=== PATIENT | female | born 1950 | race Caucasian/White ===

== ENCOUNTER 2018-11-01 15:42 | Emergency (ER) | payer OTHER, MEDICARE ==
[2018-11-01] MEDS ORDERED: MORPHINE 4 MG/ML SYR ONE (16:16)
[2018-11-01] MEDS ORDERED: ONDANSETRON 4 MG/2 ML VIAL ONE (16:16)
--- NOTE | 2018-11-01 16:31 | RAD REPORT ---
EXAM DESCRIPTION: RAD - Knee Left 3 View - 11/01/2018 4:26 pm CLINICAL HISTORY: fall;Pain COMPARISON: No comparisons FINDINGS: Mildly comminuted acute fracture of the left patella is seen. A small suprapatellar lipohe marthrosis present. No dislocation evident.
[2018-11-01] MEDS ORDERED: HYDROCODONE/APAP 7.5/325 MG TAB ONE (17:21)
--- NOTE | 2018-11-01 17:42 | ER ---
Nurse's Notes [facility] Name: Gladys Lyon Age: 68 yrs Sex: Female : 1950 Arrival Date: 11/01/2018 Time: 15:48 Bed 30 Private MD: Diagnosis: Comminuted fracture of patella-Left;Other slipping, tripping and stumbling and falls Presentation: 11/01 15:48 Presenting complaint: Patient states: fell from standing. Pt states "for the last six aa5 months or so my left toes go numb every once in a while and that it's what happened today that made me lose my balance and I fell right onto my knee". Pt c/o left knee and left ankle pain. Pt denies LOC, denies head injury. Care prior to arrival: None. Mechanism of Injury: Fall from standing position. Trauma event details: Injury occurred in the [facility], Injury occurred: November 01, 2018. 15:48 Acuity: ASHLEY 4 aa5 15:48 Method Of Arrival: EMS: [facility] aa5 15:48 Transition of care: patient was not received from another setting of care. Onset of aa5 symptoms was November 01, 2018. 15:50 Risk Assessment: Do you want to hurt yourself or someone else? Patient reports no aa5 desire to harm self or others. Initial Sepsis Screen: Does the patient meet any 2 criteria? No. Patient's initial sepsis screen is negative. Does the patient have a suspected source of infection? No. Patient's initial sepsis screen is negative. Trauma Activation: Not Applicable Physician: ED Physician; Name: ; Notified At: ; Arrived At: Physician: General Surgeon; Name: ; Notified At: ; Arrived At: Physician: Radiology; Name: ; Notified At: ; Arrived At: Physician: Respiratory; Name: ; Notified At: ; Arrived At: Physician: Lab; Name: ; Notified At: ; Arrived At: Historical: - Allergies: 15:48 Sulfa (Sulfonamide Antibiotics); aa5 15:48 PENICILLINS; aa5 - PMHx: 15:48 Hypertension; Thyroid problem; Lupus; vertigo; aa5 - PSHx: 15:48 back sx; spleenectomy; Hysterectomy; right shoulder; aa5 - Immunization history:: Flu vaccine status is unknown. - Immunization history: Last tetanus immunization: unknown. - Ebola Screening: : No symptoms or risks identified at this time. - Social history:: Smoking status: unknown. Screenin:28 Abuse screen: Denies threats or abuse. Denies injuries from another. Nutritional mg2 screening: No deficits noted. Tuberculosis screening: No symptoms or risk factors identified. Fall Risk Fall in past 12 months (25 points). IV access (20 points). Primary Survey: 16:31 NO uncontrolled hemorrhage observed. Breathing/Chest: Respiratory pattern: regular, mg2 Respiratory effort: spontaneous, unlabored, Breath sounds: clear, bilaterally. in left posterior upper lobe and right posterior upper lobe Chest inspection:. Circulation: Pulses:. Disability Alert. Exposure/Environment: All clothing and personal items were removed. Forensic evidence collection is not deemed to be indicated at this time. Items placed in patient belonging bag. There is no evidence of uncontrolled external bleeding. Obvious injury(ies) are noted at this time: left knee bruising and swelling. 18:17 Reassessment Breathing/Chest Respiratory pattern Regular. mg2 Secondary Survey: 16:33 HEENT: No deficits noted. Gastrointestinal: No deficits noted. : No deficits noted. mg2 Musculoskeletal: Circulation, motion, and sensation intact. Capillary refill < 3 seconds, Swelling present in left knee. Injury Description: Bruise sustained to left knee is red, was sustained 1-2 hours ago. Assessment: 16:26 General: Appears in no apparent distress. comfortable, Behavior is calm, cooperative. mg2 Pain: Complains of pain in left knee Pain does not radiate. Pain currently is 7 out of 10 on a pain scale. Quality of pain is described as aching, Pain began gradually, 1 hour ago. Is intermittent, Alleviated by medications, rest, cold application, Aggravated by repositioning. Neuro: Level of Consciousness is awake, alert, obeys commands, Oriented to person, place, time, situation. Cardiovascular: Capillary refill < 3 seconds Patient's skin is warm and dry. Respiratory: Airway is patent Respiratory effort is even, unlabored, Respiratory pattern is regular, symmetrical. GI: No signs and/or symptoms were reported involving the gastrointestinal system. : No signs and/or symptoms were reported regarding the genitourinary system. EENT: No signs and/or symptoms were reported regarding the EENT system. Derm: Skin is intact, is healthy with good turgor, Bruising that is on left knee red. Musculoskeletal: Circulation, motion, and sensation intact. Capillary refill < 3 seconds, Range of motion: limited in left knee Swelling present in left knee. Injury Description: Bruise sustained to left knee is red, was sustained 1-2 hours ago. Vital Signs: 15:50 BP 186 / 83; Pulse 93; Resp 18 S; Temp 98.4(O); Pulse Ox 97% on R/A; Weight 50.8 kg aa5 (R); Height 5 ft. 1 in. (154.94 cm) (R); Pain 9/10; 17:18 BP 180 / 66; Pulse 90; Resp 18; Pulse Ox 100% on R/A; mg2 18:16 BP 165 / 60; Pulse 80; Resp 18; Pulse Ox 100% on R/A; Pain 2/10; mg2 15:50 Body Mass Index 21.16 (50.80 kg, 154.94 cm) aa5 [place] Coma Score: 16:35 Eye Response: spontaneous(4). Verbal Response: oriented(5). Motor Response: obeys mg2 commands(6). Total: 15. Trauma Score (Adult): 16:35 Eye Response: spontaneous(1); Verbal Response: oriented(1); Motor Response: obeys mg2 commands(2); Systolic BP: > 89 mm Hg(4); Respiratory Rate: 10 to 29 per min(4); Yousif Score: 15; Trauma Score: 12 18:16 Eye Response: spontaneous(1); Verbal Response: oriented(1); Motor Response: obeys mg2 commands(2); Systolic BP: > 89 mm Hg(4); Respiratory Rate: 10 to 29 per min(4); [place] Score: 15; Trauma Score: 12 ED Course: 15:48 Patient arrived in ED. aa5 15:48 Josiah Beckwith PA is PHCP. cp 15:48 Ching Barth MD is Attending Physician. cp 15:48 Arm band placed on. aa5 15:50 Triage completed. aa5 16:04 Faheem Mcginnis, KAREN is Primary Nurse. mg2 16:21 X-ray completed. Portable x-ray completed in exam room. Patient tolerated procedure ag1 poorly. 16:21 XRAY Knee LEFT 3 view In Process Unspecified. EDMS 16:30 No provider procedures requiring assistance completed. Inserted saline lock: 22 gauge mg2 in right forearm, using aseptic technique. 16:35 Patient has correct armband on for positive identification. Bed in low position. Side mg2 rails up X2. 16:36 Patient maintains SpO2 saturation greater than 95% on room air. mg2 17:40 Saul Bonilla MD is Referral Physician. cp 18:16 IV discontinued, intact, bleeding controlled, No redness/swelling at site. Pressure mg2 dressing applied. 18:16 Crutch training done. Knee immobilizer applied on left knee. mg2 18:19 Thermoregulation: warm blanket given to patient. mg2 Administered Medications: 16:25 Not Given (Physician Discretion): morphine 4 mg IM once mg2 16:25 Not Given (Physician Discretion): Zofran 4 mg IM once mg2 16:25 Drug: Zofran 4 mg Route: IVP; Site: right forearm; mg2 18:15 Follow up: Response: No adverse reaction; Marked relief of symptoms mg2 16:26 Drug: morphine 4 mg Route: IVP; Site: right forearm; mg2 18:16 Follow up: Response: No adverse reaction; Marked relief of symptoms mg2 17:15 Drug: Hydrocodone-Acetaminophen (7.5 mg-325 mg) 1 tabs Route: PO; mg2 18:15 Follow up: Response: No adverse reaction; Marked relief of symptoms mg2 Intake: 16:35 PO: 0ml; Total: 0ml. mg2 Outcome: 17:41 Discharge ordered by MD. cp 18:17 Discharged to home via wheelchair, with family. mg2 18:17 Condition: stable 18:17 Discharge instructions given to patient, family, Instructed on discharge instructions, follow up and referral plans. medication usage, crutch walking, Demonstrated understanding of instructions, follow-up care, crutch walking, Prescriptions given X 1. 18:18 Patient's length of stay in the Emergency Department was greater than 2 hours. awaiting mg2 for xray reportPatient's length of stay extended due to 18:19 Patient left the ED. mg2 Signatures: Dispatcher [employer] EDMS Eboni Stringer, RN RN aa5 Deena Prabhakar ag1 Josiah Beckwith PA PA cp Faheem Mcginnis RN RN mg2
--- NOTE | 2018-11-01 17:42 | EDPHYS ---
Physician Documentation [facility] Name: Gladys Lyon Age: 68 yrs Sex: Female : 1950 Arrival Date: 11/01/2018 Time: 15:48 Bed 30 Private MD: ED Physician Ching Barth HPI: 11/01 16:00 This 68 yrs old Female presents to ER via EMS with complaints of Fall Injury. cp 16:00 Details of fall: The patient fell from an upright position, while walking, and struck a cp concrete surface. 16:00 Onset: The symptoms/episode began/occurred just prior to arrival. Associated injuries: cp The patient sustained anterior aspect left knee, decreased range of motion, painful injury. Historical: - Allergies: 15:48 Sulfa (Sulfonamide Antibiotics); aa5 15:48 PENICILLINS; aa5 - PMHx: 15:48 Hypertension; Thyroid problem; Lupus; vertigo; aa5 - PSHx: 15:48 back sx; spleenectomy; Hysterectomy; right shoulder; aa5 - Immunization history:: Flu vaccine status is unknown. - Immunization history: Last tetanus immunization: unknown. - Ebola Screening: : No symptoms or risks identified at this time. - Social history:: Smoking status: unknown. ROS: 16:05 Constitutional: Negative for body aches, chills, fever, poor PO intake. cp 16:05 Eyes: Negative for injury, pain, redness, and discharge. cp 16:05 MS/extremity: Positive for decreased range of motion, pain, swelling, tenderness, of cp the anterior aspect left knee. 16:05 Cardiovascular: Negative for chest pain. cp 16:05 Respiratory: Negative for cough, shortness of breath, wheezing. 16:05 Abdomen/GI: Negative for abdominal pain, nausea, vomiting, and diarrhea. 16:05 Neuro: Negative for dizziness, headache, loss of consciousness, syncope, weakness. 16:05 All other systems are negative. Exam: 16:12 Constitutional: The patient appears in no acute distress, alert, awake, cp non-diaphoretic, non-toxic, well developed, well nourished, uncomfortable. 16:12 Head/Face: Normocephalic, atraumatic. cp 16:12 Eyes: Periorbital structures: appear normal. 16:12 ENT: External ear(s): are unremarkable, Nose: is normal, Mouth: Lips: moist, Posterior pharynx: Airway: no evidence of obstruction, patent. 16:12 Neck: ROM/movement: is normal, is supple, no range of motions limitations, no nuchal rigidity. 16:12 Chest/axilla: Inspection: normal. 16:12 Cardiovascular: Rate: normal. 16:12 Respiratory: the patient does not display signs of respiratory distress, Respirations: normal, no use of accessory muscles, no retractions, no splinting, no tachypnea. 16:12 Abdomen/GI: Exam negative for discomfort, distension, guarding, Inspection: abdomen appears normal. 16:12 Musculoskeletal/extremity: Extremities: grossly normal except: noted in the anterior aspect left knee: decreased ROM, pain, swelling, tenderness, ROM: limited active range of motion, in the left knee, Perfusion: the extremity is normally perfused throughout, Sensation intact. 16:12 Neuro: Orientation: to person, place \T\ time. Mentation: is normal. Vital Signs: 15:50 BP 186 / 83; Pulse 93; Resp 18 S; Temp 98.4(O); Pulse Ox 97% on R/A; Weight 50.8 kg aa5 (R); Height 5 ft. 1 in. (154.94 cm) (R); Pain 9/10; 17:18 BP 180 / 66; Pulse 90; Resp 18; Pulse Ox 100% on R/A; mg2 18:16 BP 165 / 60; Pulse 80; Resp 18; Pulse Ox 100% on R/A; Pain 2/10; mg2 15:50 Body Mass Index 21.16 (50.80 kg, 154.94 cm) aa5 Yousif Coma Score: 16:35 Eye Response: spontaneous(4). Verbal Response: oriented(5). Motor Response: obeys mg2 commands(6). Total: 15. Trauma Score (Adult): 16:35 Eye Response: spontaneous(1); Verbal Response: oriented(1); Motor Response: obeys mg2 commands(2); Systolic BP: > 89 mm Hg(4); Respiratory Rate: 10 to 29 per min(4); Yousif Score: 15; Trauma Score: 12 18:16 Eye Response: spontaneous(1); Verbal Response: oriented(1); Motor Response: obeys mg2 commands(2); Systolic BP: > 89 mm Hg(4); Respiratory Rate: 10 to 29 per min(4); Siren Score: 15; Trauma Score: 12 MDM: 15:48 Patient medically screened. cp 16:00 Differential diagnosis: contusion, fracture, dislocation. cp 17:40 Data reviewed: vital signs, nurses notes, radiologic studies, plain films. cp 17:40 Test interpretation: by ED physician or midlevel provider: plain radiologic studies. cp Counseling: I had a detailed discussion with the patient and/or guardian regarding: the historical points, exam findings, and any diagnostic results supporting the discharge/admit diagnosis, radiology results, the need for outpatient follow up, for definitive care, a orthopedic surgeon, to return to the emergency department if symptoms worsen or persist or if there are any questions or concerns that arise at home. Response to treatment: the patient's symptoms have markedly improved after treatment, and as a result, I will discharge patient. 11/01 15:56 Order name: XRAY Knee LEFT 3 view; Complete Time: 16:52 cp 11/01 16:52 Interpretation: Report reviewed. 11/01 16:53 Order name: Crutches; Complete Time: 18:15 cp 11/01 16:53 Order name: Knee Immobilizer; Complete Time: 18:15 cp Administered Medications: 16:25 Not Given (Physician Discretion): morphine 4 mg IM once mg2 16:25 Not Given (Physician Discretion): Zofran 4 mg IM once mg2 16:25 Drug: Zofran 4 mg Route: IVP; Site: right forearm; mg2 18:15 Follow up: Response: No adverse reaction; Marked relief of symptoms mg2 16:26 Drug: morphine 4 mg Route: IVP; Site: right forearm; mg2 18:16 Follow up: Response: No adverse reaction; Marked relief of symptoms mg2 17:15 Drug: Hydrocodone-Acetaminophen (7.5 mg-325 mg) 1 tabs Route: PO; mg2 18:15 Follow up: Response: No adverse reaction; Marked relief of symptoms mg2 Disposition: 18:23 Co-signature as Attending Physician, Ching Barth MD. ma2 Disposition: 11/01/18 17:41 Discharged to Home. Impression: Comminuted fracture of patella - Left, Other slipping, tripping and stumbling and falls. - Condition is Stable. - Discharge Instructions: Knee Immobilizer, Patellar Fracture, Adult. - Prescriptions for Tylenol- Codeine #3 300-30 mg Oral Tablet - take 2 tablets by ORAL route every 6 hours As needed; 20 tablet. - Medication Reconciliation Form, Thank You Letter, Antibiotic Education, Prescription Opioid Use form. - Follow up: Saul Bonilla MD; When: 1 - 2 days; Reason: left patella fracture. - Problem is new. - Symptoms have improved. Signatures: Dispatcher [employer] EDMS Eboni Stringer, RN RN aa5 Josiah Beckwith PA PA cp Ching Barth MD MD ma2 Faheem Mcginnis RN RN mg2 Corrections: (The following items were deleted from the chart) 17:43 17:41 11/01/2018 17:41 Discharged to Home. Impression: Comminuted fracture of patella - cp Left. Condition is Stable. Discharge Instructions: Knee Immobilizer. Prescriptions for Tylenol-Codeine #3 300-30 mg Oral Tablet - take 2 tablets by ORAL route every 6 hours As needed; 20 tablet. and Forms are Medication Reconciliation Form, Thank You Letter, Antibiotic Education, Prescription Opioid Use. Follow up: Saul Bonilla; When: 1 - 2 days; Reason: left patella fracture. Problem is new. Symptoms have improved. cp 18:19 17:43 11/01/2018 17:41 Discharged to Home. Impression: Comminuted fracture of patella - mg2 Left; Other slipping, tripping and stumbling and falls. Condition is Stable. Discharge Instructions: Knee Immobilizer. Prescriptions for Tylenol-Codeine #3 300-30 mg Oral Tablet - take 2 tablets by ORAL route every 6 hours As needed; 20 tablet. and Forms are Medication Reconciliation Form, Thank You Letter, Antibiotic Education, Prescription Opioid Use. Follow up: Saul Bonilla; When: 1 - 2 days; Reason: left patella fracture. Problem is new. Symptoms have improved. cp
== END 2018-11-01 18:19 | disposition home or self-care (01) ==
LOC: ER 15:42
DX: S82.042A Displaced comminuted fracture of left patella, initial encounter for closed fracture (principal); W19.XXXA Unspecified fall, initial encounter; Y93.01 Activity, walking, marching and hiking; Y92.9 Unspecified place or not applicable; Z88.0 Allergy status to penicillin; Z88.2 Allergy status to sulfonamides; I10 Essential (primary) hypertension
CPT/HCPCS: 73562; 96374; 96375; 99284; J2405

== ENCOUNTER 2018-11-20 12:31 | Emergency (ER) | payer OTHER, MEDICARE ==
[2018-11-20] MEDS ORDERED: HYDROCODONE/APAP 10/325 TAB ONE (13:39)
--- NOTE | 2018-11-20 15:44 | RAD REPORT ---
EXAM DESCRIPTION: RAD - Ankle Left 3 View -11/20/2018 2:45 pm CLINICAL HISTORY: Left ankle pain status post injury FINDINGS: No fracture or dislocation is seen. The bones are osteoporotic
--- NOTE | 2018-11-20 15:46 | RAD REPORT ---
EXAM DESCRIPTION: RAD - Foot Left 3 View - 11/20/2018 2:45 pm CLINICAL HISTORY: Left Foot pain FINDINGS: No fracture or dislocation is seen. The bones are osteoporotic
[2018-11-20] MEDS ORDERED: HYDROMORPHONE HCL 0.5 MG/0.5 ML INJ ONE (16:29)
--- NOTE | 2018-11-20 17:51 | RAD REPORT ---
EXAM DESCRIPTION: USExtremity Venous Uni Ltd11/20/2018 5:45 pm CLINICAL HISTORY: left leg pain and swelling. COMPARISON: None. FINDINGS: Left common femoral, superficial femoral, popliteal and posterior tibial veins are compre ssible and demonstrate augmentation. Doppler demonstrates good flow. IMPRESSION: No evidence of deep venous thrombosis involving the left lower extremity.
--- NOTE | 2018-11-20 18:01 | RAD REPORT ---
EXAM DESCRIPTION: US - Lower Extremity Artery Uni Ltd - 11/20/2018 5:49 pm CLINICAL HISTORY: Left lower extremity pain COMPARISON: None FINDINGS: The waveforms of the left common femoral, left superficial femoral, left popliteal, left p osterior tibial, and left dorsalis pedis arteries are monophasic. An occlusion is not seen. A high-grade stenosis is not visualized. IMPRESSION: Moderate diffuse arterial disease without visualization of a high-grade stenosis/ occlus ion
--- NOTE | 2018-11-20 18:15 | ER ---
Nurse's Notes [facility] Name: Gladys Lyon Age: 68 yrs Sex: Female : 1950 Arrival Date: 11/20/2018 Time: 12:33 Bed 20 Private MD: Mega Wilson E Diagnosis: Pain in left leg;Pain in left foot Presentation: 11/20 12:37 Presenting complaint: Patient states: 3 weeks ago I broke my left knee but I never my la1 left ankle looked at and I am afraid it may be broken. Transition of care: patient was not received from another setting of care. Onset of symptoms was November 20, 2018. Risk Assessment: Do you want to hurt yourself or someone else? Patient reports no desire to harm self or others. Initial Sepsis Screen: Does the patient meet any 2 criteria? No. Patient's initial sepsis screen is negative. Does the patient have a suspected source of infection? No. Patient's initial sepsis screen is negative. Care prior to arrival: None. 12:37 Method Of Arrival: Wheelchair la1 12:37 Acuity: ASHLEY 4 la1 Triage Assessment: 13:11 General: Appears in no apparent distress. Injury Description: from fall. tw2 Historical: - Allergies: 12:36 PENICILLINS; la1 12:36 Sulfa (Sulfonamide Antibiotics); la1 12:36 Keflex; la1 - PMHx: 12:36 Hypertension; Lupus; Thyroid problem; Vertigo; la1 - PSHx: 13:01 spleenectomy; Hysterectomy; right shoulder; back sx; tw2 - Immunization history:: Adult Immunizations up to date. - Social history:: Smoking status: unknown. - Ebola Screening: : No symptoms or risks identified at this time. Screenin:59 Abuse screen: Denies threats or abuse. Nutritional screening: No deficits noted. tw2 Tuberculosis screening: No symptoms or risk factors identified. Fall Risk Secondary diagnosis (15 points) impaired mobility. Assessment: 13:09 General: Appears in no apparent distress. Behavior is calm, cooperative, appropriate tw2 for age. Pain: Complains of pain in right leg. Neuro: Level of Consciousness is awake, alert, obeys commands, Oriented to person, place, time, situation. Cardiovascular: Capillary refill < 3 seconds Patient's skin is warm and dry. Respiratory: Airway is patent Respiratory effort is even, unlabored, Respiratory pattern is regular, symmetrical. GI: No signs and/or symptoms were reported involving the gastrointestinal system. : No signs and/or symptoms were reported regarding the genitourinary system. EENT: No signs and/or symptoms were reported regarding the EENT system. Derm: No signs and/or symptoms reported regarding the dermatologic system. Musculoskeletal: Range of motion: limited in left knee Reports "i broke my knee 3 weeks ago but it was my whole left leg and foot and they never looked at my foot". 14:23 Reassessment: Patient appears in no apparent distress at this time. No changes from tw2 previously documented assessment. Patient and/or family updated on plan of care and expected duration. Pain level reassessed. Patient is alert, oriented x 3, equal unlabored respirations, skin warm/dry/pink. 15:15 Reassessment: Patient appears in no apparent distress at this time. No changes from tw2 previously documented assessment. Patient and/or family updated on plan of care and expected duration. Pain level reassessed. Patient is alert, oriented x 3, equal unlabored respirations, skin warm/dry/pink. 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 15:47 Reassessment: provider at bedside with handheld doppler at this time. tw2 16:15 Reassessment: pt c/o pain, pts friend at bedside states "her foot is hurting her, she tw2 didn't need something at home, she needs something now", provider notified. 16:31 Reassessment: Patient appears in no apparent distress at this time. Patient and/or tw2 family updated on plan of care and expected duration. Pain level reassessed. Patient is alert, oriented x 3, equal unlabored respirations, skin warm/dry/pink. Patient states symptoms have not improved. 17:25 Reassessment: Patient appears in no apparent distress at this time. No changes from tw2 previously documented assessment. Patient and/or family updated on plan of care and expected duration. Pain level reassessed. Patient is alert, oriented x 3, equal unlabored respirations, skin warm/dry/pink. 18:20 Reassessment: Patient appears in no apparent distress at this time. No changes from tw2 previously documented assessment. Patient and/or family updated on plan of care and expected duration. Pain level reassessed. Patient is alert, oriented x 3, equal unlabored respirations, skin warm/dry/pink. Vital Signs: 12:39 Pulse 85; Resp 16; Temp 97.7; Pulse Ox 98% on R/A; Weight 47.17 kg; Height 5 ft. 1 in. la1 (154.94 cm); 12:40 BP 160 / 69; la1 14:23 BP 136 / 51; Pulse 72; Resp 17; Pulse Ox 95% on R/A; tw2 15:14 BP 131 / 52; Pulse 69; Resp 17; Pulse Ox 96% on R/A; tw2 16:31 BP 113 / 83; Pulse 77; Resp 17; Pulse Ox 99% on R/A; tw2 17:24 BP 116 / 45; Pulse 68; Resp 17; Pulse Ox 97% on R/A; tw2 12:39 Body Mass Index 19.65 (47.17 kg, 154.94 cm) la1 ED Course: 12:33 Patient arrived in ED. mr 12:34 Mega Wilson MD is Private Physician. mr 12:36 Arm band placed on left wrist. la1 12:38 Triage completed. la1 12:57 [facility]. cp 12:57 Haroldo Bernal MD is Attending Physician. cp 12:59 Lucinda Magnaa, KAREN is Primary Nurse. tw2 12:59 Bed in low position. Call light in reach. Pulse ox on. NIBP on. tw2 14:45 XRAY Ankle LEFT 3 view In Process Unspecified. EDMS 14:45 XRAY Foot LEFT 3 View In Process Unspecified. EDMS 17:05 X-ray completed. Patient tolerated procedure well. Notified BINDER CASER/PA page. sg3 17:45 US Extremity Venous Unilateral Ltd In Process Unspecified. EDMS 17:51 US Lower Extremity Artery Uni Ltd In Process Unspecified. EDMS 18:20 No provider procedures requiring assistance completed. Patient did not have IV access tw2 during this emergency room visit. Administered Medications: 13:30 Drug: HYDROcodone-acetaminophen 10 mg-325 mg 1 tabs Route: PO; tw2 15:14 Follow up: Response: No adverse reaction; Pain is decreased tw2 16:22 Drug: Dilaudid 0.5 mg Route: IM; Site: left deltoid; tw2 17:43 Follow up: Response: No adverse reaction; Pain is decreased tw2 Outcome: 18:14 Discharge ordered by . cp 18:20 Discharged to home via wheelchair, with family. tw2 18:20 Condition: stable 18:20 Discharge instructions given to patient, family, Instructed on discharge instructions, follow up and referral plans. medication usage, Demonstrated understanding of instructions, follow-up care, medications, Prescriptions given X 1. 18:21 Patient left the ED. tw2 Signatures: Dispatcher [employer] EDSD MarlonRoz HernanCb swan RN RN la1 Josiah Beckwith PA PA cp Wise, Tara, RN RN tw2 Lashell Coleman3
--- NOTE | 2018-11-20 18:15 | EDPHYS ---
Physician Documentation [facility] Name: Gladys Lyon Age: 68 yrs Sex: Female : 1950 Arrival Date: 11/20/2018 Time: 12:33 Bed 20 Private MD: Mega Wilson E ED Physician Haroldo Bernal HPI: 11/20 13:25 This 68 yrs old Female presents to ER via Wheelchair with complaints of Foot cp Injury. 13:25 The patient presents with pain, swelling, tenderness. The complaints affect the left cp ankle and left foot. Associated signs and symptoms: Pertinent negatives fever, numbness, tingling, warmth. 13:25 Patient was seen in [facility] ED 11-01-2018 after trip and fall causing comminuted cp fracture of left patella. Patient reports she has seen and evaluated by DR Cali who is treating fracture with immobilization of left knee. Patient reports increasing swelling and pain to left ankle and left foot and is concerned about possible fracture of feet sustained from fall on 11-01-2018. Historical: - Allergies: 12:36 PENICILLINS; la1 12:36 Sulfa (Sulfonamide Antibiotics); la1 12:36 Keflex; la1 - PMHx: 12:36 Hypertension; Lupus; Thyroid problem; Vertigo; la1 - PSHx: 13:01 spleenectomy; Hysterectomy; right shoulder; back sx; tw2 - Immunization history:: Adult Immunizations up to date. - Social history:: Smoking status: unknown. - Ebola Screening: : No symptoms or risks identified at this time. ROS: 13:30 Constitutional: Negative for body aches, chills, fever. cp 13:30 Eyes: Negative for injury, pain, redness, and discharge. cp 13:30 Cardiovascular: Negative for chest pain, edema, palpitations. 13:30 Respiratory: Negative for cough, shortness of breath, wheezing. 13:30 MS/extremity: Positive for ecchymosis, pain, swelling, tenderness, of the left ankle and left foot, Negative for decreased range of motion, deformity. 13:30 Neuro: Negative for numbness, tingling. 13:30 All other systems are negative. Exam: 13:38 Constitutional: The patient appears in no acute distress, alert, awake, cp non-diaphoretic, non-toxic, well developed, well nourished, uncomfortable. 13:38 Head/Face: Normocephalic, atraumatic. cp 13:38 Eyes: Periorbital structures: appear normal, Conjunctiva: normal, no exudate, no injection, Sclera: no appreciated abnormality, Lids and lashes: appear normal, bilaterally. 13:38 ENT: External ear(s): are unremarkable, Nose: is normal, Mouth: Lips: moist, Oral mucosa: moist, Posterior pharynx: Airway: no evidence of obstruction, patent. 13:38 Neck: ROM/movement: is normal, is supple, without pain, no range of motions limitations, no nuchal rigidity. 13:38 Chest/axilla: Inspection: normal, Palpation: is normal, no crepitus, no tenderness. 13:38 Cardiovascular: Rate: normal, Rhythm: regular, Edema: is not appreciated, JVD: is not appreciated. 13:38 Respiratory: the patient does not display signs of respiratory distress, Respirations: normal, no use of accessory muscles, no retractions, no splinting, no tachypnea, labored breathing, is not present, Breath sounds: are clear throughout, no decreased breath sounds, no stridor, no wheezing. 13:38 Abdomen/GI: Exam negative for discomfort, distension, guarding, Inspection: abdomen appears normal. 13:38 Back: pain, is absent, ROM is normal. 13:38 Musculoskeletal/extremity: Extremities: grossly normal except: noted in the left ankle: ecchymosis, swelling, tenderness, ROM: limited passive range of motion due to pain, in the left ankle, Pulses: weak dorsalis pedis pulse left foot, Perfusion: the extremity is pink, with brisk capillary refill, cool, Calf tenderness, that is mild, of the left lower extremeity, Edema, is not appreciated, Sensation intact. 13:38 Skin: cellulitis, is not appreciated, no rash present. 13:38 Neuro: Orientation: is normal, Mentation: is normal, Motor: moves all fours, strength is normal. Vital Signs: 12:39 Pulse 85; Resp 16; Temp 97.7; Pulse Ox 98% on R/A; Weight 47.17 kg; Height 5 ft. 1 in. la1 (154.94 cm); 12:40 BP 160 / 69; la1 14:23 BP 136 / 51; Pulse 72; Resp 17; Pulse Ox 95% on R/A; tw2 15:14 BP 131 / 52; Pulse 69; Resp 17; Pulse Ox 96% on R/A; tw2 16:31 BP 113 / 83; Pulse 77; Resp 17; Pulse Ox 99% on R/A; tw2 17:24 BP 116 / 45; Pulse 68; Resp 17; Pulse Ox 97% on R/A; tw2 12:39 Body Mass Index 19.65 (47.17 kg, 154.94 cm) la1 MDM: 12:57 Patient medically screened. cp 14:00 Differential diagnosis: dislocation, closed fracture, tendonitis, DVT, arterial cp occlusion. 18:10 Data reviewed: vital signs, nurses notes, radiologic studies, plain films, ultrasound, cp and as a result, I will discharge patient. 18:10 Counseling: I had a detailed discussion with the patient and/or guardian regarding: the cp historical points, exam findings, and any diagnostic results supporting the discharge/admit diagnosis, radiology results, the need for outpatient follow up, with PCP concerning vascular disease and DR Cali, orthopedist, for reevaluation of patella fracture. Response to treatment: the patient's symptoms have markedly improved after treatment. 11/20 13:19 Order name: XRAY Ankle LEFT 3 view; Complete Time: 15:51 cp 11/20 13:19 Order name: XRAY Foot LEFT 3 View; Complete Time: 15:51 cp 11/20 15:53 Order name: US Extremity Venous Unilateral Ltd; Complete Time: 18:05 cp 11/20 15:53 Order name: Lower Extremity Artery Uni Ltd; Complete Time: 18:05 cp Administered Medications: 13:30 Drug: HYDROcodone-acetaminophen 10 mg-325 mg 1 tabs Route: PO; tw2 15:14 Follow up: Response: No adverse reaction; Pain is decreased tw2 16:22 Drug: Dilaudid 0.5 mg Route: IM; Site: left deltoid; tw2 17:43 Follow up: Response: No adverse reaction; Pain is decreased tw2 Disposition: 18:56 Co-signature as Attending Physician, Haroldo Bernal MD. Disposition: 11/20/18 18:14 Discharged to Home. Impression: Pain in left leg, Pain in left foot. - Condition is Stable. - Discharge Instructions: Musculoskeletal Pain. - Prescriptions for Diclofenac Sodium 75 mg Oral Tablet, Delayed Release (E.C.) - take 1 tablet by ORAL route 2 times per day; 20 tablet. - Medication Reconciliation Form, Thank You Letter, Antibiotic Education, Prescription Opioid Use form. - Follow up: Private Physician; When: 2 - 3 days; Reason: Recheck today's complaints. - Problem is an ongoing problem. - Symptoms have improved. Signatures: Dispatcher [employer] EDMS Cb Sierra RN RN la1 Josiah Beckwith PA PA cp Lucinda Magana RN RN tw2 Haroldo Bernal MD MD gs Corrections: (The following items were deleted from the chart) 18:21 18:14 11/20/2018 18:14 Discharged to Home. Impression: Pain in left leg; Pain in left tw2 foot. Condition is Stable. Forms are Medication Reconciliation Form, Thank You Letter, Antibiotic Education, Prescription Opioid Use. Follow up: Private Physician; When: 2 - 3 days; Reason: Recheck today's complaints. Problem is an ongoing problem. Symptoms have improved. cp
== END 2018-11-20 18:21 | disposition home or self-care (01) ==
LOC: ER 12:31
DX: M79.672 Pain in left foot (principal); M79.605 Pain in left leg; I10 Essential (primary) hypertension; Z88.0 Allergy status to penicillin; Z88.2 Allergy status to sulfonamides; Z88.8 Allergy status to other drugs, medicaments and biological substances
CPT/HCPCS: 73610; 73630; 93926; 93971; J1170; 96372; 99284

== ENCOUNTER 2018-12-30 11:59 | Emergency (ER) | payer OTHER, MEDICARE ==
[2018-12-30] MEDS ORDERED: MORPHINE 4 MG/ML SYR ONE (12:30)
[2018-12-30] MEDS ORDERED: ONDANSETRON 4 MG/2 ML VIAL ONE (12:30)
[2018-12-30 12:34] LABS: Absolute Lymphocytes (CBC) 2.4 K/uL (0.7-4.9); Absolute Monocytes 0.9 K/uL (0.1-1.3); Absolute Neutrophil 7.7 K/uL (1.8-8.0); Basophils % 1.1 % (0-1.3); Eosinophils % 2.6 % (0-4.4); Hematocrit 41.4 % (36.0-45.0); Lymphocytes % 20.9 % (15.3-44.8); MPV 8.7 fL (7.6-11.3); Monocytes % 7.9 % (3.3-12.3)
[2018-12-30 12:57] LABS: Potassium 3.7 mmol/L (3.5-5.1)
--- NOTE | 2018-12-30 13:01 | RAD REPORT ---
EXAM DESCRIPTION: RAD - Foot Left 3 View - 12/30/2018 12:54 pm CLINICAL HISTORY: Right first toe pain, soft tissue swelling, possible osteomyelitis COMPARISON: November 2018 FINDINGS: No fracture, dislocation or periosteal reaction. No bone destructive process in the first toe nor elsewhere the left foot. No radiographic evidence for osteomyelitis. Osteomyelitis can exist prior to radiographic bone destruction. Soft tissue swelling evident at the first toe. No air or foreign body. IMPRESSION: No fracture. No radiographic evidence for osteomyelitis.
[2018-12-30] MEDS ORDERED: FENTANYL CITR 100 MCG/2 ML ONE (14:07)
[2018-12-30] MEDS ORDERED: CLINDAMYCIN 600MG/D5W 600 MG/50 ML BAG IV ONE (14:07)
--- NOTE | 2018-12-30 14:09 | EDPHYS ---
Physician Documentation [facility] Name: Gladys Lyon Age: 68 yrs Sex: Female : 1950 Arrival Date: 12/30/2018 Time: 12:07 Bed 20 Private MD: ED Physician Mendoza Joe HPI: 12/30 13:03 This 68 yrs old Female presents to ER via EMS with complaints of great toe kb pain, wound. 13:03 The patient presents with pain, that is acute, tenderness. The complaints affect the kb left first toe. Context: The problem was sustained at home, resulted from wound noted to left great toe, the patient can fully bear weight, the patient is able to ambulate. Onset: The symptoms/episode began/occurred 1.5 month(s) ago. Modifying factors: The symptoms are alleviated by nothing, the symptoms are aggravated by nothing. Associated signs and symptoms: Pertinent positives: redness. Severity of symptoms: At their worst the symptoms were moderate, in the emergency department the symptoms are unchanged. The patient has not experienced similar symptoms in the past. The patient has been recently seen by a physician: the patient's primary care provider, with similar presenting complaints. 13:07 Pt reports she clipped her toenail and developed a sore on left great toe. Now toe is kb red and painful. Reports she has been to her PCP, started clindamycin yesterday. Has been to a warp spinner and was told to follow up with a vascular surgeon and a pouring crane operator. Has appt with pouring crane operator on Wednesday. Historical: - Allergies: 12:10 Keflex; jl7 12:10 PENICILLINS; jl7 12:10 Sulfa (Sulfonamide Antibiotics); jl7 - PMHx: 12:10 Hypertension; Lupus; Thyroid problem; Vertigo; jl7 - Immunization history:: Adult Immunizations not up to date. - Social history:: Smoking status: Patient/guardian denies using tobacco. - Ebola Screening: : No symptoms or risks identified at this time. ROS: 13:06 Constitutional: Negative for fever, chills, and weight loss, Cardiovascular: Negative kb for chest pain, palpitations, and edema, Respiratory: Negative for shortness of breath, cough, wheezing, and pleuritic chest pain, Abdomen/GI: Negative for abdominal pain, nausea, vomiting, diarrhea, and constipation, Neuro: Negative for headache, weakness, numbness, tingling, and seizure. 13:06 MS/extremity: Positive for injury or acute deformity, pain, tenderness, of the left first toe. Exam: 13:08 Constitutional: This is a well developed, well nourished patient who is awake, alert, kb and in no acute distress. Head/Face: Normocephalic, atraumatic. Neck: Trachea midline, no thyromegaly or masses palpated, and no cervical lymphadenopathy. Supple, full range of motion without nuchal rigidity, or vertebral point tenderness. No Meningismus. Chest/axilla: Normal chest wall appearance and motion. Nontender with no deformity. No lesions are appreciated. Cardiovascular: Regular rate and rhythm with a normal S1 and S2. No gallops, murmurs, or rubs. Normal PMI, no JVD. No pulse deficits. Respiratory: Lungs have equal breath sounds bilaterally, clear to auscultation and percussion. No rales, rhonchi or wheezes noted. No increased work of breathing, no retractions or nasal flaring. Abdomen/GI: Soft, non-tender, with normal bowel sounds. No distension or tympany. No guarding or rebound. No evidence of tenderness throughout. MS/ Extremity: Pulses equal, no cyanosis. Neurovascular intact. Full, normal range of motion. Neuro: Awake and alert, GCS 15, oriented to person, place, time, and situation. Cranial nerves II-XII grossly intact. Motor strength 5/5 in all extremities. Sensory grossly intact. Cerebellar exam normal. Normal gait. 13:08 Skin: Open wound noted to left great toe at end of nail with redness to entire toe, no swelling or warmth noted. brisk cap refill.. Vital Signs: 12:10 BP 146 / 77; Pulse 100; Resp 16; Temp 98.2; Pulse Ox 100% ; Weight 49.9 kg; Pain 10/10; jl7 13:08 BP 128 / 57; Pulse 76; Resp 16; Pulse Ox 95% on R/A; ms 14:08 BP 146 / 72; Pulse 79; Resp 16; Pulse Ox 98% ; jl7 MDM: 12:07 Patient medically screened. kb 13:10 Data reviewed: vital signs, nurses notes. Data interpreted: Pulse oximetry: on room air kb is 95 %. Interpretation: normal. 13:44 Counseling: I had a detailed discussion with the patient and/or guardian regarding: the kb historical points, exam findings, and any diagnostic results supporting the discharge/admit diagnosis, lab results, radiology results, the need for outpatient follow up, a family practitioner, to return to the emergency department if symptoms worsen or persist or if there are any questions or concerns that arise at home. 14:09 ED course: Pt is taking norco 10/325mg and gabapentin at home. Educated to continue kb clindamycin and keep appt with vascular surgeon on Wednesday and pouring crane operator on Wednesday. 12/30 12:08 Order name: CBC with Diff; Complete Time: 12:50 kb 12/30 12:08 Order name: Basic Metabolic Panel; Complete Time: 12:59 kb 12/30 12:08 Order name: Foot Left 3 View XRAY; Complete Time: 13:02 kb 12/30 12:08 Order name: IV Start; Complete Time: 12:28 kb Administered Medications: 12:28 Drug: morphine 4 mg Route: IVP; Site: right forearm; iw 12:50 Follow up: Response: No adverse reaction; Pain is decreased jl7 12:28 Drug: Zofran 4 mg Route: IVP; Site: right forearm; iw 12:50 Follow up: Response: No adverse reaction jl7 14:00 Drug: fentaNYL (PF) 25 mcg Route: IVP; Site: right forearm; jl7 14:15 Follow up: Response: No adverse reaction; Pain is decreased jl7 14:05 Drug: Clindamycin 600 mg Route: IVPB; Infused Over: 30 mins; Site: right forearm; jl7 14:35 Follow up: Response: No adverse reaction; IV Status: Completed infusion jl7 Disposition: 15:17 Co-signature as Attending Physician, Mendoza Joe MD. rn Disposition: 12/30/18 14:09 Discharged to Home. Impression: Local infection of the skin and subcutaneous tissue, unspecified - left great toe. - Condition is Stable. - Discharge Instructions: Wound Infection, [id number]. - Medication Reconciliation Form, Thank You Letter, Antibiotic Education, Prescription Opioid Use form. - Follow up: Emergency Department; When: As needed; Reason: Worsening of condition. Follow up: Private Physician; When: 2 - 3 days; Reason: Recheck today's complaints, Continuance of care, Re-evaluation by your physician. - Notes: Continue clindamycin previously prescribed. Signatures: Dispatcher [employer] Kayy Fuentes, SELENA-Ailyn ERNSTP-Noris Daniels, RN Mendoza Mix MD MD rn Leal, Jahala, RN RN jl7 Corrections: (The following items were deleted from the chart) 13:06 13:03 The complaints affect the right first toe, kb kb 13:06 13:03 Context: The problem was sustained at home, resulted from wound noted to right kb great toe, the patient can fully bear weight, the patient is able to ambulate, kb 13:08 13:03 The patient has not recently seen a physician, kb kb 13:10 13:08 Skin: Open wound noted to left great toe with redness . kb kb 13:11 13:08 Skin: Open wound noted to left great toe with redness to entire toe, no swelling kb or warmth noted. . kb 14:45 14:09 12/30/2018 14:09 Discharged to Home. Impression: Local infection of the skin and jl7 subcutaneous tissue, unspecified - left great toe. Condition is Stable. Forms are Medication Reconciliation Form, Thank You Letter, Antibiotic Education, Prescription Opioid Use. Follow up: Emergency Department; When: As needed; Reason: Worsening of condition. Follow up: Private Physician; When: 2 - 3 days; Reason: Recheck today's complaints, Continuance of care, Re-evaluation by your physician. kb
--- NOTE | 2018-12-30 14:09 | ER ---
Nurse's Notes [facility] Name: Gladys Lyon Age: 68 yrs Sex: Female : 1950 Arrival Date: 12/30/2018 Time: 12:07 Bed 20 Private MD: Diagnosis: Local infection of the skin and subcutaneous tissue, unspecified-left great toe Presentation: 12/30 12:08 Presenting complaint: EMS states: Pain in left great toe, wound noted to tip of left jl7 great toe. Transition of care: patient was not received from another setting of care. Onset of symptoms was December 30, 2018. Risk Assessment: Do you want to hurt yourself or someone else? Patient reports no desire to harm self or others. Initial Sepsis Screen: Does the patient meet any 2 criteria? No. Patient's initial sepsis screen is negative. Does the patient have a suspected source of infection? No. Patient's initial sepsis screen is negative. Care prior to arrival: Pt took [place] 10 mg - 325 mg PO at home about an hour ago. 12:08 Method Of Arrival: EMS: [facility] jl7 12:08 Acuity: ASHLEY 4 jl7 Triage Assessment: 12:10 General: Appears in no apparent distress. uncomfortable, Behavior is calm, cooperative, jl7 appropriate for age. Pain: Complains of pain in Right first toenail Pain currently is 10 out of 10 on a pain scale. Neuro: Level of Consciousness is awake, alert, obeys commands, Oriented to person, place, time, situation. Cardiovascular: Patient's skin is warm and dry. Respiratory: Airway is patent Respiratory effort is even, unlabored, Respiratory pattern is regular, symmetrical. Derm: Skin is pink, warm \T\ dry. Historical: - Allergies: 12:10 Keflex; jl7 12:10 PENICILLINS; jl7 12:10 Sulfa (Sulfonamide Antibiotics); jl7 - PMHx: 12:10 Hypertension; Lupus; Thyroid problem; Vertigo; jl7 - Immunization history:: Adult Immunizations not up to date. - Social history:: Smoking status: Patient/guardian denies using tobacco. - Ebola Screening: : No symptoms or risks identified at this time. Screenin:00 Abuse screen: Denies threats or abuse. Denies injuries from another. Nutritional jl7 screening: No deficits noted. Tuberculosis screening: No symptoms or risk factors identified. Fall Risk IV access (20 points). Assessment: 12:10 General: See triage assessment. jl7 12:50 Reassessment: Pt reports decreased pain, rated 4/10. jl7 13:15 Reassessment: Pt reports increased pain, rated 10/10, requesting more medication, ERP jl7 notified and will discuss POC with ERD. 13:50 Reassessment: ERP at bedside discussing plan of care, see [facility] for orders. jl7 14:11 Reassessment: Pt will be discharged once medication is done infusing. jl7 Vital Signs: 12:10 BP 146 / 77; Pulse 100; Resp 16; Temp 98.2; Pulse Ox 100% ; Weight 49.9 kg; Pain 10/10; jl7 13:08 BP 128 / 57; Pulse 76; Resp 16; Pulse Ox 95% on R/A; ms 14:08 BP 146 / 72; Pulse 79; Resp 16; Pulse Ox 98% ; jl7 ED Course: 12:07 Patient arrived in ED. kb 12:07 Kayy Centeno FNP-C is PHCP. kb 12:07 Mendoza Joe MD is Attending Physician. kb 12:08 Miryam Amor RN is Primary Nurse. jl7 12:09 Triage completed. jl7 12:10 Arm band placed on right wrist. jl7 12:53 X-ray completed. Portable x-ray completed in exam room. Patient tolerated procedure jb2 well. 12:55 Foot Left 3 View XRAY In Process Unspecified. EDMS 13:00 Patient has correct armband on for positive identification. Bed in low position. Call jl7 light in reach. Side rails up X 1. Pulse ox on. NIBP on. 13:00 Initial lab(s) drawn, by me, sent to lab. Inserted saline lock: 18 gauge in right jl7 forearm, using aseptic technique. Blood collected. 14:44 No provider procedures requiring assistance completed. IV discontinued, intact, jl7 bleeding controlled, No redness/swelling at site. Pressure dressing applied. Administered Medications: 12:28 Drug: morphine 4 mg Route: IVP; Site: right forearm; iw 12:50 Follow up: Response: No adverse reaction; Pain is decreased jl7 12:28 Drug: Zofran 4 mg Route: IVP; Site: right forearm; iw 12:50 Follow up: Response: No adverse reaction 7 14:00 Drug: fentaNYL (PF) 25 mcg Route: IVP; Site: right forearm; jl7 14:15 Follow up: Response: No adverse reaction; Pain is decreased jl7 14:05 Drug: Clindamycin 600 mg Route: IVPB; Infused Over: 30 mins; Site: right forearm; jl7 14:35 Follow up: Response: No adverse reaction; IV Status: Completed infusion 7 Outcome: 14:09 Discharge ordered by MD. villalobos 14:44 Discharged to home ambulatory. jl7 14:44 Condition: stable 14:44 Discharge instructions given to patient, family, Instructed on discharge instructions, follow up and referral plans. Demonstrated understanding of instructions, follow-up care. 14:45 Patient left the ED. jl7 Signatures: Dispatcher [employer] EDKayy Rodriguez, SINTERING PLANT SUPERVISOR-C SINTERING PLANT SUPERVISOR-Demetrius Ackerman2 Noris Santos, Susana Hallman RN, ms, Jahala, RN RN jl7
== END 2018-12-30 14:45 | disposition home or self-care (01) ==
LOC: ER 11:59
DX: L08.9 Local infection of the skin and subcutaneous tissue, unspecified (principal); I10 Essential (primary) hypertension; Z88.0 Allergy status to penicillin; Z88.1 Allergy status to other antibiotic agents; Z88.2 Allergy status to sulfonamides
CPT/HCPCS: 96365; 85025; 80048; 36415; 73630; 96375; 99284; J3010; J2405

== ENCOUNTER 2019-01-09 06:48 | Day surgery (SDC) | payer OTHER, MEDICARE ==
--- NOTE | 2019-01-06 12:27 | RAD REPORT ---
EXAM DESCRIPTION: Mario Motley (2 Views)01/06/2019 12:10 pm CLINICAL HISTORY: Hypertension/preop COMPARISON: 2015 FINDINGS: The lungs appear clear of acute infiltrate. The heart is borderline enlarged IMPRESSION: No acute abnormalities displayed
[2019-01-06 12:42] LABS: Absolute Lymphocytes (CBC) 2.9 K/uL (0.7-4.9); Absolute Monocytes 1.2 K/uL (0.1-1.3); Basophils % 0.7 % (0-1.3); Eosinophils % 2.1 % (0-4.4); Lymphocytes % 21.3 % (15.3-44.8); MPV 9.7 fL (7.6-11.3); Monocytes % 8.8 % (3.3-12.3); RBC Red Blood Cell Count 4.53 M/uL (3.86-4.86)
[2019-01-06 13:05] LABS: Protime INR 0.98
[2019-01-09] MEDS ORDERED: HEPA 1000U/500MLS 2,000 UNIT/1,000 ML BAG IV ONE (07:30)
[2019-01-09] MEDS ORDERED: LIDOCAINE 1% 20 ML MDV ONE (07:30)
[2019-01-09] MEDS ORDERED: NA CHLORIDE 0.9% 500 ML ONE (07:31)
[2019-01-09] MEDS ORDERED: MIDAZOLAM HCL 2 MG/2 ML INJ ONE ×3 (08:25→09:28)
[2019-01-09] MEDS ORDERED: HEPARIN 5000 UNIT/ML 1 ML VIAL ONE (08:25)
[2019-01-09] MEDS ORDERED: FENTANYL CITR 100 MCG/2 ML ONE ×3 (08:25→13:39)
[2019-01-09] MEDS ORDERED: HEPA 1000U/500MLS 1,000 UNIT/500 ML BAG IV ONE (09:17)
[2019-01-09] MEDS ORDERED: LIDOCAINE 1% MPF 30 ML VIAL ONE (09:18)
[2019-01-09] MEDS ORDERED: HYDROCODONE/APAP 10/325 TAB PO PRN (11:03)
[2019-01-09] MEDS ORDERED: HYDROCODONE/APAP 10/325 TAB ONE (11:45)
[2019-01-09] MEDS ORDERED: NITROGLYCERIN 0.4 MG/TAB SL PRN (12:00)
[2019-01-09] MEDS ORDERED: ACETAMINOPHEN 325 MG TABLET PO PRN (12:00)
[2019-01-09] MEDS ORDERED: NA CHLORIDE 0.9% 1,000 ML IV SCH (12:00)
[2019-01-09] MEDS: FENTANYL CITR 100 MCG/2 ML IV PRN ×2 (13:33→15:24)
--- NOTE | 2019-01-09 22:03 | OP ---
Surgeon: Sarthak Weber MD Procedure: Abdominal angiogram with runoffs; attempted LABEL SEWER of the left iliac stenosis, unsuccessful. 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 Her left common femoral, superficial femoral, and popliteal arteries do not look like they have significant disease. The left common tushar c has a friable 90% stenosis. We were able to cross it with a wire, but could not get a balloon to g o across and it remains the same at the end of the procedure as at the beginning. Procedure In Detail: The patient was brought to the cardiac curb and gutter laborer in a fasting state sedated with Versed and fentanyl. Prepared and draped in usual sterile fashion. We started with the right femor al artery, entered it with a needle, cannulated the artery with a short J-wire, placed a 4-Cameroonian she ath. We were able to extend the wire into the ascending aorta with some difficulty. There was a lot of irregularity and roughness in the right common iliac, although it does not look stenotic. We wer e able to place a 6-Cameroonian sheath in place of the 4. We used a 6-Cameroonian straight pigtail to angiogra m the aorta. We injected 60 cc of contrast, followed it down all the way to the ankles, and then we attempted a LABEL SEWER of the left common iliac. We were able to go up and over with a wire, but no cathete r or sheath would go up and over and we were simply unable to pass the balloon. There was no support for guiding the balloon across the lesion. We attempted to cannulate the left common femoral artery . We were unable to do so. The pressure it was fairly low, wires would not thread, and after a 2-ho ur case we abandoned further attempts and decided to allow the left femoral area to heal and take ano ther day to attempt a left femoral puncture. I think if we can do that, we can probably do an iliac stent and avoid surgery, if not then she will need an an aorto to femoral bypass on the left. DIXON/YANA Voice ID: [id number] Report ID: [id number]
== END 2019-01-09 16:36 | disposition home or self-care (01) ==
LOC: CCL 06:48
PROVIDERS: ATTEND Internal Medicine
DX: I70.203 Unspecified atherosclerosis of native arteries of extremities, bilateral legs (principal); I70.92 Chronic total occlusion of artery of the extremities; I10 Essential (primary) hypertension; E78.5 Hyperlipidemia, unspecified; F17.210 Nicotine dependence, cigarettes, uncomplicated; Z79.01 Long term (current) use of anticoagulants; Z88.0 Allergy status to penicillin; Z88.3 Allergy status to other anti-infective agents
CPT/HCPCS: 85025; 36415; 85610; 85730; 71046; 36200; 75630; C1893; C1887; J1644; J2250 ×2; J3010 ×3

== ENCOUNTER 2020-12-29 11:04 | Observation (INO) | payer OTHER, MEDICARE ==
--- OUTSIDE RECORDS SUMMARY | 2020-12-29 11:07 | XMS REPORT | Continuity of Care Document ---
:1950 Author Organization Formerly [facility] t Address [address] [place] [address] Care Team Providers Name Role Phone Jone Wilson MD Primary Care Physician Satya HDZ Attending Clinician SATYA Attending Clinician Unavailable Emily ADAIR Admitting Clinician Unavailable Problems Condition Condition Condition Status Onset Resolution Last Treating Co mments Source Name Details Category Date Date Treatment Clinician Date PAD PAD Disease Active [facility] (periphera 4-17 Arianna kes - l artery l artery 00:00: Medica l disease) disease) 00 Center Allergies, Adverse Reactions, Alerts Allergy Allergy Status Severity Reaction(s) Onset Inactive Treating Comm ents Source Name Type Date Date Clinician Reynold Drug Active [facility] Inhibito Allergy [facility] Penicill Propensi Active Anaphylaxis [facility] ins ty to [facility] - adverse Medical reaction Center s Sulfa Propensi Active Hives, [facility] (Sulf[facility] to [facility] Medical Antibiot reaction Center ics) s Family History Family Member Diagnosis Comments Start Date Stop Date Source Natural father Hypertension [facility] Natural mother Coronary artery disease [facility] Natural mother Diabetes [facility] Natural sister Other [facility] Social History Social Habit Start Date Stop Date Quantity Comments Source History of tobacco Cigarette Smoker [facility] - use Medical Center Sex Assigned At [facility] catherine - [facility] Cigarettes smoked 2019-01-24 2019-01-24 ARUN Valverde - current (pack per 00:00:00 00:00:00 Medical Center day) - Reported Cigarette 2019-01-24 2019-01-24 ARUN Valverde - pack-years 00:00:00 00:00:00 Medical Center Tobacco use and 2019-01-24 2019-01-24 Never used ARUN Bloom - exposure 00:00:00 00:00:00 [facility] Alcohol intake 2019-01-24 2019-01-24 Current drinker ARUN Allen - 00:00:00 00:00:00 of alcohol Medical Center (finding) History [facility] 2019-01-18 2019-01-18 5 ARUN Valverde - Alcohol Frequency 00:00:00 00:00:00 Medical Center History [facility] 2019-01-18 2019-01-18 1 ARUN Valverde - Alcohol Std Drinks 00:00:00 00:00:00 Medica l Center History [facility] 2019-01-18 2019-01-18 1 ARUN Valverde - Alcohol Binge 00:00:00 00:00:[address] Smoking Status Start Date Stop Date Source Current every day smoker 2019-01-24 00:[place] [facility] [place]dered Filled Start Stop Current Ordering Indication Dosage Frequency Signature Comments Components Source Medication Medication Date Date Medication? Clinician (SIG) Name Name cilostazol Yes 100mg Q.5D Take [address] (PLETAL) 4-22 mg by [facility] - 100 MG 13:53: mouth 2 Medical tablet 20 (two) Center times daily. albuterol-i Yes 2{puff} Inhale [address] pratropium 4-22 puffs by [facility] - (COMBIVENT 13:53: mouth via Me dical RESPIMAT) 20 inhaler 2 Cente r 20-100 (two) mcg/actuati times on Mist daily as inhaler needed for Wheezing. mometasone 2018- Yes 2{spray [address] [facility] (NASONEX) 4-22 } by Nasal [facility] - 50 13:53: route Medical mcg/actuati 20 daily as Cent er on nasal needed for spray Rhinitis. esomeprazol 2018- Yes 40mg Take [address] e (NEXIUM) 4-22 by mouth [facility] - 40 MG 13:53: daily as Medical capsule 20 needed. Center ALPRAZolam 2019- Yes .5mg Take 0.[address] (XANAX) 0.5 4-22 mg by [facility] - MG tablet 13:53: mouth Medical 20 every Center night as needed for Sleep. amLODIPine 2019- Yes 5mg QD Take [address] (NORVASC) 5 4-22 by mouth Luke s - MG tablet 13:53: daily. Medica l 20 Center cetirizine Yes 10mg Take [address] (ZYRTEC) 10 4-22 by mouth Luke s - MG tablet 13:53: daily as Medi danii 20 needed for Center Allergies or Rhinitis. ibuprofen Yes 200mg Take [address] (ADVIL,MOTR 4-22 mg by [facility] - IN) 200 MG 13:53: mouth 2 Medi danii tablet 20 (two) Center times daily as needed for Pain. clopidogrel 2020- No 75mg QD Take [address] (PLAVIX) 75 4-22 04-21 tablet (75 L ukes - mg tablet 00:00: 23:59 mg total) Me dical 00 :00 by mouth Center daily. aspirin 81 2020- No 81mg QD Take [address] MG chewable 4-20 04-19 tablet (81 L ukes - tablet 00:00: 23:59 mg total) Medic al 00 :00 by mouth Center daily. HYDROcodone 2018- Yes 2{tbl} Take [address] -acetaminop 4-19 tablets by Arianna barnes (NORCO 00:00: mouth Medica l 7.5-325) 00 every 4 Center 7.5-325 mg (four) per tablet hours as needed. Max Daily Amount: 12 tablets Procedures This patient has no known procedures. Plan of Care Planned Activity Planned Date Details Comments Source Future Scheduled 2020-06-04 INFLUENZA VACCINE (#1) [facility] - Test 00:00:00 [code = INFLUENZA Medical Ce nter VACCINE (#1)] Future Scheduled 2019-10-[address] [facility] - Test 00:00:00 (12+) [code = Medical Center DEPRESSION SCREENING (12+)] Future Scheduled 2013 PNEUMOCOCCAL 65+ YRS [facility] - Test 00:00:00 (1 of 1 - Medical Center [id number]) [code = PNEUMOCOCCAL 65+ YRS (1 of 1 - [id number] PCV13)] Future Scheduled 1994-05-[address] [facility] - Test 00:00:00 WELLNESS (YEAR 2 or Medical Center FIRST YEAR if no IPPE) [code = MEDICARE ANNUAL WELLNESS (YEAR 2 or FIRST YEAR if no IPPE)] Future Scheduled [address] [facility] - Test 00:00:00 [facility] breast (procedure) [code = 716788461] Future Scheduled [address] [facility] - Test 00[facility]00:00 [facility] colon (procedure) [code = 360659556] Encounters Start End Encounter Admission Attending Care Care Encounter Source Date/Time Date/Time Type Type Clinicians Facility Department ID 2019-06-07 2019-06-07 Office YONG Hernadez [id number] 13:27:12 14:18:19 Visit Jayer AMBULATOR [id number] Y [id number] Results Test Description Test Time Test Comments Results Result Comments Source BASIC METABOLIC PANEL 2019-01-20 05:38:00 Test Item Value Reference Range Interpretation Comme nts SODIUM (BEAKER) (test code 139 meq/L 136-145 = 381) POTASSIUM (BEAKER) (test 4.0 meq/L 3.5-5.1 code = 379) CHLORIDE (BEAKER) (test 103 meq/L 98-107 code = 382) CO2 (BEAKER) (test code = 29 meq/L 22-29 355) BLOOD UREA NITROGEN 16 mg/dL 7-21 (BEAKER) (test code = 354) CREATININE (BEAKER) (test 0.70 mg/dL 0.57-1.25 code = 358) GLUCOSE RANDOM (BEAKER) 96 mg/dL 70-105 (test code = 652) CALCIUM (BEAKER) (test code 9.5 mg/dL 8.4-10.2 = 697) EGFR (BEAKER) (test code = 83 mL/min/1.73 sq m ESTIMATED GFR IS NOT 1092) ACCURATE CRE ATININE CLEARANCE IN DE EDICTING GLOMERULAR FILT RATION RATE. ESTIMATED GFR IS NOT APPLICABLE FOR DIALYSIS PATIENTS. CBC W/PLT COUNT & AUTO [id number] 05:14:00 Test Item Value Reference Range Interpretation Comments WHITE BLOOD CELL COUNT (BEAKER) 12.0 K/ L 3.5-10.5 H (test code = 775) RED BLOOD CELL COUNT (BEAKER) 3.37 M/ L 3.93-5.22 L (test code = 761) HEMOGLOBIN (BEAKER) (test code = 10.8 GM/DL 11.2-15.7 L 410) HEMATOCRIT (BEAKER) (test code = 33.1 % 34.1-44.9 L 411) MEAN CORPUSCULAR VOLUME (BEAKER) 98.2 fL 79.4-94.8 H (test code = 753) MEAN CORPUSCULAR HEMOGLOBIN 32.0 pg 25.6-32.2 (BEAKER) (test code = 751) MEAN CORPUSCULAR HEMOGLOBIN CONC 32.6 GM/DL 32.2-35.5 (BEAKER) (test code = 752) RED CELL DISTRIBUTION WIDTH 13.4 % 11.7-14.4 (BEAKER) (test code = 412) PLATELET COUNT (BEAKER) (test 329 K/CU MM 150-450 code = 756) MEAN PLATELET VOLUME (BEAKER) 10.5 fL 9.4-12.3 (test code = 754) NUCLEATED RED BLOOD CELLS 0 /100 WBC 0-0 (BEAKER) (test code = 413) NEUTROPHILS RELATIVE PERCENT 60 % (BEAKER) (test code = 429) LYMPHOCYTES RELATIVE PERCENT 23 % (BEAKER) (test code = 430) MONOCYTES RELATIVE PERCENT 12 % (BEAKER) (test code = 431) EOSINOPHILS RELATIVE PERCENT 3 % (BEAKER) (test code = 432) BASOPHILS RELATIVE PERCENT 1 % (BEAKER) (test code = 437) NEUTROPHILS ABSOLUTE COUNT 7.21 K/ L 1.56-6.13 H (BEAKER) (test code = 670) LYMPHOCYTES ABSOLUTE COUNT 2.74 K/ L 1.18-3.74 (BEAKER) (test code = 414) MONOCYTES ABSOLUTE COUNT (BEAKER) 1.40 K/ L 0.24-0.36 H (test code = 415) EOSINOPHILS ABSOLUTE COUNT 0.38 K/ L 0.04-0.36 H (BEAKER) (test code = 416) BASOPHILS ABSOLUTE COUNT (BEAKER) 0.10 K/ L 0.01-0.08 H (test code = 417) IMMATURE GRANULOCYTES-RELATIVE 2 % 0-1 H PERCENT (BEAKER) (test code = 2801) HEMOGLOBIN [id number] 08:47:00 Test Item Value Reference Range Interpretation Comments HEMOGLOBIN A1C (BEAKER) (test code = 5.1 % 4.3-6.1 368) BASIC METABOLIC [id number] 03:09:00 Test Item Value Reference Range Interpretation Comments SODIUM (BEAKER) 139 meq/L 136-145 (test code = 381) POTASSIUM (BEAKER) 3.9 meq/L 3.5-5.1 (test code = 379) CHLORIDE (BEAKER) 105 meq/L 98-107 (test code = 382) CO2 (BEAKER) (test 27 meq/L 22-29 code = 355) BLOOD UREA NITROGEN 13 mg/dL 7-21 (BEAKER) (test code = 354) CREATININE (BEAKER) 0.65 mg/dL 0.57-1.25 (test code = 358) GLUCOSE RANDOM 93 mg/dL 70-105 (BEAKER) (test code = 652) CALCIUM (BEAKER) 9.2 mg/dL 8.4-10.2 (test code = 697) EGFR (BEAKER) (test 90 mL/min/1.73 ESTIMA ISIDRO GFR IS code = 1092) sq m NOT ACCURATE CREATININE CLEARANCE IN PREDICTING GLOMERULAR FILTRATION RATE . ESTIMATED GFR I S NOT APPLICABLE FOR DIALYSIS PATIEN TS. LIPID [id number] 03:09:00 Test Item Value Reference Range Interpretation Comments TRIGLYCERIDES (BEAKER) (test code = 122 mg/dL 540) CHOLESTEROL (BEAKER) (test code = 151 mg/dL 631) HDL CHOLESTEROL (BEAKER) (test code 48 mg/dL = 976) LDL CHOLESTEROL CALCULATED (BEAKER) 79 mg/dL (test code = 633) Triglyceride Reference Range: Low Risk <150 Borderline 150-199 High Risk 200-499 Very High Risk >=500Cholesterol Reference Range: Low Risk <200 Borderline 200-239 High Risk >240HDL Cholesterol Reference Range: Low Risk >=60 High Risk <40LDL Cholesterol Reference Range: Optimal <100 Near Optimal 100-129 Borderline 130-159 High 160-189 Very High >=190CBC W/PLT COUNT & AUTO [id number] 02:52:00 Test Item Value Reference Range Interpretation Comments WHITE BLOOD CELL COUNT (BEAKER) 10.6 K/ L 3.5-10.5 H (test code = 775) RED BLOOD CELL COUNT (BEAKER) 3.36 M/ L 3.93-5.22 L (test code = 761) HEMOGLOBIN (BEAKER) (test code = 10.4 GM/DL 11.2-15.7 L 410) HEMATOCRIT (BEAKER) (test code = 33.0 % 34.1-44.9 L 411) MEAN CORPUSCULAR VOLUME (BEAKER) 98.2 fL 79.4-94.8 H (test code = 753) MEAN CORPUSCULAR HEMOGLOBIN 31.0 pg 25.6-32.2 (BEAKER) (test code = 751) MEAN CORPUSCULAR HEMOGLOBIN CONC 31.5 GM/DL 32.2-35.5 L (BEAKER) (test code = 752) RED CELL DISTRIBUTION WIDTH 13.5 % 11.7-14.4 (BEAKER) (test code = 412) PLATELET COUNT (BEAKER) (test 303 K/CU MM 150-450 code = 756) MEAN PLATELET VOLUME (BEAKER) 9.8 fL 9.4-12.3 (test code = 754) NUCLEATED RED BLOOD CELLS 0 /100 WBC 0-0 (BEAKER) (test code = 413) NEUTROPHILS RELATIVE PERCENT 60 % (BEAKER) (test code = 429) LYMPHOCYTES RELATIVE PERCENT 25 % (BEAKER) (test code = 430) MONOCYTES RELATIVE PERCENT 9 % (BEAKER) (test code = 431) EOSINOPHILS RELATIVE PERCENT 4 % (BEAKER) (test code = 432) BASOPHILS RELATIVE PERCENT 1 % (BEAKER) (test code = 437) NEUTROPHILS ABSOLUTE COUNT 6.32 K/ L 1.56-6.13 H (BEAKER) (test code = 670) LYMPHOCYTES ABSOLUTE COUNT 2.68 K/ L 1.18-3.74 (BEAKER) (test code = 414) MONOCYTES ABSOLUTE COUNT (BEAKER) 0.98 K/ L 0.24-0.36 H (test code = 415) EOSINOPHILS ABSOLUTE COUNT 0.37 K/ L 0.04-0.36 H (BEAKER) (test code = 416) BASOPHILS ABSOLUTE COUNT (BEAKER) 0.07 K/ L 0.01-0.08 (test code = 417) IMMATURE GRANULOCYTES-RELATIVE 1 % 0-1 PERCENT (BEAKER) (test code = 2801) RAD, CHEST, 1 VIEW, NON [id number] 20:24:00Reason for exam:->jvd eval for congestionShould this be performed at the bedside?->YesFINAL REPORT History: JVD, evaluate for congestion. Comparison: None. Finding s: A single view of the chest is submitted. The cardiac silhouette is at the upper limits of normal for size but magnified by technique Curvilinear opacity in the left lower lung suggests atelectasis or scarring. There is no focal consolidation, pneumothorax, large pleural effusion or evidence of overt pulmonary edema. There is no acute bony abnormality. Fixation hardware in the right humerus is partially visualized. Surgical clips overlie the left upper quadrant. Signed: Fabricio Samuels MDReport Verified Date/Time: 01/18/2019 20:24:42 URINALYSIS W/ REFLEX URINE [id number] 20:15:00 Test Item Value Reference Range Interpretation Comments COLOR (BEAKER) (test code = 470) Light Yellow CLARITY (BEAKER) (test code = Hazy 469) SPECIFIC GRAVITY UA (BEAKER) 1.007 1.001-1.035 (test code = 468) PH UA (BEAKER) (test code = 467) 7.5 5.0-8.0 PROTEIN UA (BEAKER) (test code = Negative Negative 464) GLUCOSE UA (BEAKER) (test code = Negative Negative 365) KETONES UA (BEAKER) (test code = Negative Negative 371) BILIRUBIN UA (BEAKER) (test code Negative Negative = 462) BLOOD UA (BEAKER) (test code = Negative Negative 461) NITRITE UA (BEAKER) (test code = Negative Negative 465) LEUKOCYTE ESTERASE UA (BEAKER) Negative Negative (test code = 466) UROBILINOGEN UA (BEAKER) (test 0.2 mg/dL 0.2-1.0 code = 463) RBC UA (BEAKER) (test code = 1 /HPF 519) WBC UA (BEAKER) (test code = 0 /HPF 520) BACTERIA (BEAKER) (test code = Many 517) MUCUS (BEAKER) (test code = Rare 1574) SQUAMOUS EPITHELIAL (BEAKER) < /HPF (test code = 516) HYALINE CASTS (BEAKER) (test 2 /LPF code = 514) AMORPHOUS CRYSTALS (BEAKER) Rare (test code = 1584) YEAST (BEAKER) (test code = Few 1585) SOURCE(BEAKER) (test code = 5583) B-TYPE NATRIURETIC FACTOR (BNP)2019-01-18 18:32:00 Test Item Value Reference Range Interpretation Comments B-TYPE NATRIURETIC PEPTIDE (BEAKER) 56 pg/mL 0-100 (test code = 700) COMPREHENSIVE METABOLIC [id number] 18:27:00 Test Item Value Reference Range Interpretation Comments TOTAL PROTEIN 8.2 gm/dL 6.0-8.3 Specimen sligh tly (BEAKER) (test code = hemoly zed 770) ALBUMIN (BEAKER) 4.4 g/dL 3.5-5.0 Specimen sl ightly (test code = 1145) hemolyzed ALKALINE PHOSPHATASE 94 U/L 40-150 (BEAKER) (test code = 346) BILIRUBIN TOTAL 0.5 mg/dL 0.2-1.2 Specimen sli ghtly (BEAKER) (test code = hemoly zed 377) SODIUM (BEAKER) (test 141 meq/L 136-145 code = 381) POTASSIUM (BEAKER) 3.6 meq/L 3.5-5.1 Specimen slightly (test code = 379) hemolyzed CHLORIDE (BEAKER) 104 meq/L 98-107 (test code = 382) CO2 (BEAKER) (test 28 meq/L 22-29 code = 355) BLOOD UREA NITROGEN 14 mg/dL 7-21 (BEAKER) (test code = 354) CREATININE (BEAKER) 0.71 mg/dL 0.57-1.25 Specimen slightly (test code = 358) hemolyzed GLUCOSE RANDOM 81 mg/dL 70-105 (BEAKER) (test code = 652) CALCIUM (BEAKER) 10.2 mg/dL 8.4-10.2 (test code = 697) AST (SGOT) (BEAKER) 27 U/L 5-34 Specimen slightly (test code = 353) hemolyzed ALT (SGPT) (BEAKER) 12 U/L 6-55 Specimen slightly (test code = 347) hemolyzed EGFR (BEAKER) (test 81 mL/min/1.73 ESTIMA SIIDRO GFR IS code = 1092) sq m NOT ACCURATE CREATININE CLEARANCE IN PREDICTING GLOMERULAR FILTRATION RATE . ESTIMATED GFR I S NOT APPLICABLE FOR DIALYSIS PATIEN TS. [id number] 18:14:00 Test Item Value Reference Range Interpretation Comments PROTIME (BEAKER) (test code = 12.8 seconds 11.7-14.7 759) INR (BEAKER) (test code = 370) 1.0 <=5.9 PARTIAL THROMBOPLASTIN TIME 57.4 seconds 22.5-36.0 H (BEAKER) (test code = 760) RECOMMENDED COUMADIN/WARFARIN INR THERAPY RANGESSTANDARD DOSE: 2.0 - 3.0 Includes: PROPHYLAXIS forvenous thrombosis, systemic embolization; TREATMENT for venous thrombosis and/or pulmonary embolus.HIGH RISK: Target INR is 2.5-3.5 for patients with mechanical heart valves.CBC W/PLT COUNT & AUTO DIFFERENTIAL 2019-01-18 18:07:00 Test Item Value Reference Range Interpretation Comments WHITE BLOOD CELL COUNT (BEAKER) 13.8 K/ L 3.5-10.5 H (test code = 775) RED BLOOD CELL COUNT (BEAKER) 4.01 M/ L 3.93-5.22 (test code = 761) HEMOGLOBIN (BEAKER) (test code = 12.8 GM/DL 11.2-15.7 410) HEMATOCRIT (BEAKER) (test code = 39.2 % 34.1-44.9 411) MEAN CORPUSCULAR VOLUME (BEAKER) 97.8 fL 79.4-94.8 H (test code = 753) MEAN CORPUSCULAR HEMOGLOBIN 31.9 pg 25.6-32.2 (BEAKER) (test code = 751) MEAN CORPUSCULAR HEMOGLOBIN CONC 32.7 GM/DL 32.2-35.5 (BEAKER) (test code = 752) RED CELL DISTRIBUTION WIDTH 13.4 % 11.7-14.4 (BEAKER) (test code = 412) PLATELET COUNT (BEAKER) (test 360 K/CU MM 150-450 code = 756) MEAN PLATELET VOLUME (BEAKER) 10.2 fL 9.4-12.3 (test code = 754) NUCLEATED RED BLOOD CELLS 0 /100 WBC 0-0 (BEAKER) (test code = 413) NEUTROPHILS RELATIVE PERCENT 64 % (BEAKER) (test code = 429) LYMPHOCYTES RELATIVE PERCENT 23 % (BEAKER) (test code = 430) MONOCYTES RELATIVE PERCENT 9 % (BEAKER) (test code = 431) EOSINOPHILS RELATIVE PERCENT 2 % (BEAKER) (test code = 432) BASOPHILS RELATIVE PERCENT 1 % (BEAKER) (test code = 437) NEUTROPHILS ABSOLUTE COUNT 8.78 K/ L 1.56-6.13 H (BEAKER) (test code = 670) LYMPHOCYTES ABSOLUTE COUNT 3.16 K/ L 1.18-3.74 (BEAKER) (test code = 414) MONOCYTES ABSOLUTE COUNT (BEAKER) 1.19 K/ L 0.24-0.36 H (test code = 415) EOSINOPHILS ABSOLUTE COUNT 0.33 K/ L 0.04-0.36 (BEAKER) (test code = 416) BASOPHILS ABSOLUTE COUNT (BEAKER) 0.13 K/ L 0.01-0.08 H (test code = 417) IMMATURE GRANULOCYTES-RELATIVE 1 % 0-1 PERCENT (BEAKER) (test code = 8291)
[2020-12-29] MEDS ORDERED: MORPHINE 4 MG/ML SYR ONE ×2 (11:34→13:17)
[2020-12-29] MEDS ORDERED: ONDANSETRON 4 MG/2 ML VIAL ONE (11:34)
[2020-12-29 11:42] LABS: Absolute Lymphocytes (CBC) 0.9 K/uL (0.7-4.9); Basophils % 0.6 % (0-1.3); Hematocrit 42.8 % (36.0-45.0); Lymphocytes % 4.4 % (15.3-44.8); MPV 9.5 fL (7.6-11.3); Protime INR 0.99; RBC Red Blood Cell Count 4.72 M/uL (3.86-4.86)
--- NOTE | 2020-12-29 12:20 | RAD REPORT ---
EXAM DESCRIPTION: Mario Single View12/29/2020 12:11 pm CLINICAL HISTORY: Chest pain COMPARISON: 2018 FINDINGS: The lungs appear clear of acute infiltrate. The heart is normal size IMPRESSION: No acute abnormalities displayed
[2020-12-29 12:21] LABS: ALT/SGPT 13 U/L (12-78); AST/SGOT 15 U/L (15-37); Alkaline Phosphatase 109 U/L (45-117); BUN Blood Urea Nitrogen 14 mg/dL (7-18); Bicarbonate 25 mmol/L (21-32); Bilirubin Direct 0.2 mg/dL (0-0.2); Bilirubin Total 0.7 mg/dL (0.2-1.0); Glucose Level 106 mg/dL (74-106); Magnesium 2.3 mg/dL (1.8-2.4); NT PRO-BNP 327 pg/mL (<125); Protein, Total 8.1 g/dL (6.4-8.2); Sodium Level 138 mmol/L (136-145); Troponin (Emerg Dept Use Only) < 0.02 ng/mL (0.0-0.045)
[2020-12-29 12:23] LABS: Blood Morphology Comment NOT SEEN (NOT SEEN); Platelet Estimate INCR; Platelets, Giant NOTED
--- NOTE | 2020-12-29 13:55 | RAD REPORT ---
EXAM DESCRIPTION: CT - Chest For Pe Angio - 12/29/2020 1:21 pm CLINICAL HISTORY: Chest pain COMPARISON: None. TECHNIQUE: Dynamically enhanced axial 3 mm thick images of the chest were obtained during administra tion of <100> mL Isovue 370 IV contrast. Coronal and oblique reconstruction images were generated and reviewed. Exam utilizes a protocol for optimal evaluation of pulmonary arterial tree. Maximum intensity projections 3D imaging was utilized All CT scans are performed using dose optimization technique as appropriate and may include automated exposure control or mA/KV adjustment according to patient size. FINDINGS: A pulmonary embolus is not seen. A thoracic aortic aneurysm is not noted. A pleural effusion is not seen. A pericardial effusion is not seen. A lung consolidation is not present. 10 millimeter calcified nodule left lobe of the thyroid gland IMPRESSION: Negative for a pulmonary embolism. 10 millimeter calcified nodule left lobe of thyroid gland probably benign. Follow-up ultrasound 1 yea r recommended
--- NOTE | 2020-12-29 14:02 | ER ---
Nurse's Notes [facility] Name: Gladys Lyon Age: 70 yrs Sex: Female : 1950 Arrival Date: 12/29/2020 Time: 11:07 Bed 7 Private MD: Diagnosis: Chest pain, unspecified Presentation: 12/29 11:08 Chief complaint: Patient states: CP since last night. Radiates into neck/jaw. + SOB. ll1 Coronavirus screen: Client denies travel out of the [place] in the last 14 days. At this time, the client does not indicate any symptoms associated with coronavirus-19. Ebola Screen: Patient denies travel to an Ebola-affected area in the 21 days before illness onset. Initial Sepsis Screen: Does the patient meet any 2 criteria? HR > 90 bpm. No. Patient's initial sepsis screen is negative. Does the patient have a suspected source of infection? No. Patient's initial sepsis screen is negative. Risk Assessment: Do you want to hurt yourself or someone else? Patient reports no desire to harm self or others. Onset of symptoms was December 28, 2020. 11:08 Method Of Arrival: EMS ll1 11:08 Acuity: ASHLEY 3 ll1 11:13 Chief complaint: EMS states: Aspirin 162mg PO and 1 nitro en route. 20 G L FA. ll1 Historical: - Allergies: 11:10 PENICILLINS; ll1 11:10 Sulfa (Sulfonamide Antibiotics); ll1 11:10 Keflex; ll1 - PMHx: 11:10 Hypertension; Lupus; Thyroid problem; Vertigo; GERD; chronic back pain; ll1 - Immunization history:: Adult Immunizations up to date, Flu vaccine is not up to date. - Social history:: Smoking status: Patient reports the use of cigarette tobacco products, smokes one pack cigarettes per day. Screenin:30 Abuse screen: Denies threats or abuse. Denies injuries from another. Nutritional ss screening: No deficits noted. Tuberculosis screening: Never had TB. Fall Risk None identified. Assessment: 11:04 Reassessment: Received VO from Jarrod SANCHEZ for EKG order. sv 11:30 General: Appears in no apparent distress. Behavior is calm, cooperative. Pain: Pain hb currently is 8 out of 10 on a pain scale. Neuro: Level of Consciousness is awake, alert, obeys commands, Oriented to person, place, time, situation. Cardiovascular: Patient's skin is warm and dry. Rhythm is sinus tachycardia. Respiratory: Respiratory effort is even, unlabored, Respiratory pattern is regular, symmetrical. GI: No signs and/or symptoms were reported involving the gastrointestinal system. : No signs and/or symptoms were reported regarding the genitourinary system. EENT: No signs and/or symptoms were reported regarding the EENT system. Derm: Skin is pink, warm \T\ dry. Musculoskeletal: No signs and/or symptoms reported regarding the musculoskeletal system. 12:30 Reassessment: Patient appears in no apparent distress at this time. Patient and/or hb family updated on plan of care and expected duration. Pain level reassessed. Patient is alert, oriented x 3, equal unlabored respirations, skin warm/dry/pink. 13:16 Reassessment: Pt to CT at this time VIA stretcher. Pt is awake and alert. No apparent ss distress at this time. Appears comfortable. Respirations even and unlabored. 13:30 Reassessment: Patient appears in no apparent distress at this time. Patient and/or hb family updated on plan of care and expected duration. Pain level reassessed. Patient is alert, oriented x 3, equal unlabored respirations, skin warm/dry/pink. 14:30 Reassessment: Patient appears in no apparent distress at this time. Patient and/or hb family updated on plan of care and expected duration. Pain level reassessed. Patient is alert, oriented x 3, equal unlabored respirations, skin warm/dry/pink. 14:30 Reassessment: Patient appears in no apparent distress at this time. Patient and/or hb family updated on plan of care and expected duration. Pain level reassessed. Patient is alert, oriented x 3, equal unlabored respirations, skin warm/dry/pink. 15:30 Reassessment: Patient appears in no apparent distress at this time. Patient and/or hb family updated on plan of care and expected duration. Pain level reassessed. Patient is alert, oriented x 3, equal unlabored respirations, skin warm/dry/pink. 16:30 Reassessment: Patient appears in no apparent distress at this time. Patient and/or hb family updated on plan of care and expected duration. Pain level reassessed. Patient is alert, oriented x 3, equal unlabored respirations, skin warm/dry/pink. 16:40 Reassessment: Attempted to call report, nurse unavailable. sv 17:01 Reassessment: Attempted to call report, nurse unavailable. sv 17:28 Reassessment: Patient appears in no apparent distress at this time. Patient and/or hb family updated on plan of care and expected duration. Pain level reassessed. Patient is alert, oriented x 3, equal unlabored respirations, skin warm/dry/pink. Vital Signs: 11:08 BP 146 / 66; Pulse 104; Resp 17; Temp 99.3; Pulse Ox 96% ; Pain 6/10; ll1 11:12 Weight 47.63 kg; Height 5 ft. 1 in. (154.94 cm); ll1 12:54 BP 133 / 57; Pulse 86; Resp 14; Pulse Ox 98% on R/A; Pain 8/10; hb 13:30 BP 140 / 63; Pulse 90; Resp 19; Pulse Ox 95% on R/A; ss 14:30 BP 135 / 59; Pulse 86; Resp 15; Pulse Ox 96% on R/A; hb 15:30 BP 126 / 65; Pulse 81; Resp 14; Pulse Ox 97% on R/A; hb 16:30 BP 123 / 68; Pulse 79; Resp 17; Pulse Ox 99% on R/A; hb 16:30 BP 123 / 68; Pulse 78; Resp 15; Pulse Ox 97% on R/A; hb 11:12 Body Mass Index 19.84 (47.63 kg, 154.94 cm) ll1 ED Course: 11:04 EKG done, by ED staff, reviewed by Jarrod Zambrano NP. sv 11:07 Patient arrived in ED. sv 11:08 Jarrod Zambrano NP is PHCP. pm1 11:08 Mendoza Joe MD is Attending Physician. pm1 11:10 Triage completed. ll1 11:11 Arm band placed on Patient placed in an exam room, on a stretcher. ll1 11:14 Billie Ford, KAREN is Primary Nurse. hb 11:46 Notified Nurse Practitioner and/or Physician Community Outreach Coordinator of a critical lab result(s), sv WBC-21.0. 12:11 XRAY Chest (1 view) In Process Unspecified. EDMS 13:10 Procalcitonin Sent. sv 13:11 Lactate Sent. sv 13:11 Blood Culture Adult (2) Sent. sv 13:14 Inserted saline lock: 20 gauge in right forearm, using aseptic technique. Blood ss collected. 13:21 CT Chest For PE Angio In Process Unspecified. EDMS 13:30 Patient has correct armband on for positive identification. Bed in low position. Call ss light in reach. 14:01 Gaurang Vaughan MD is Hospitalizing Provider. pm1 17:31 No provider procedures requiring assistance completed. Patient admitted, IV remains in sv place. intact. Administered Medications: 11:29 Drug: morphine 4 mg Route: IVP; Site: left wrist; hb 14:03 Follow up: Response: No adverse reaction; Pain is decreased ss 11:29 Drug: Zofran (Ondansetron) 4 mg Route: IVP; Site: left wrist; hb 14:04 Follow up: Response: No adverse reaction ss 13:02 Drug: morphine 4 mg Route: IVP; Site: left forearm; hb 14:03 Follow up: Response: No adverse reaction; Pain is decreased ss Outcome: 14:01 Decision to Hospitalize by Provider. pm1 17:30 Admitted to Tele accompanied by tech, via stretcher, room 232, with chart, Report sv called to Charo JONES 17:30 Condition: stable 17:30 Instructed on the need for admit. 17:37 Patient left the ED. sv Signatures: Dispatcher [employer] Merced Alcala RN RN sv Smirch, Shelby, RN RN ss Jarrod Zambrano, HEEL SANDER HEEL SANDER pm1 Billie Ford RN RN hb Lewis, Lynsay RN RN ll1
--- NOTE | 2020-12-29 14:02 | EDPHYS ---
Physician Documentation [facility] Name: Gladys Loyn Age: 70 yrs Sex: Female : 1950 Arrival Date: 12/29/2020 Time: 11:07 Bed 7 Private MD: ED Physician Mendoza Joe HPI: 12/29 11:13 This 70 yrs old Female presents to ER via EMS with complaints of Chest Pain. pm1 11:13 The patient or guardian reports chest pain that is located primarily in the mid-sternal pm1 area. Onset: last night. The pain radiates to the left shoulder, left neck, jaw. Associated signs and symptoms: Pertinent positives: shortness of breath, Pertinent negatives: abdominal pain, cough, nausea, vomiting. The chest pain is described as sharp. Duration: The patient or guardian reports a single episode, that is still ongoing, but improving. Severity of pain: At its worst the pain was a 8 / 10 in the emergency department the pain has improved is a 3 / 10. The patient has not recently seen a physician, the patient's primary care provider is Dr. Wilson. Patient with chest pain onset 2200 last night, 6/10. Pain got worse this AM 8/10. Called EMS who gave 1 nitro SL in route which improved it to 3/10. Patient took Aspirin 162 mg at onset of chest pain. Given Aspirin 162 mg by EMS. Historical: - Allergies: 11:10 PENICILLINS; ll1 11:10 Sulfa (Sulfonamide Antibiotics); ll1 11:10 Keflex; ll1 - PMHx: 11:10 Hypertension; Lupus; Thyroid problem; Vertigo; GERD; chronic back pain; ll1 - Immunization history:: Adult Immunizations up to date, Flu vaccine is not up to date. - Social history:: Smoking status: Patient reports the use of cigarette tobacco products, smokes one pack cigarettes per day. ROS: 11:18 Constitutional: Negative for fever, chills, and weight loss. pm1 11:18 Abdomen/GI: Negative for abdominal pain, nausea, vomiting, diarrhea, and constipation. 11:18 : Negative for injury, bleeding, discharge, and swelling, MS/Extremity: Negative for injury and deformity, Skin: Negative for injury, rash, and discoloration, Neuro: Negative for headache, weakness, numbness, tingling, and seizure. 11:18 Cardiovascular: Positive for chest pain, of the mid-sternal area, Negative for edema, palpitations. 11:18 Respiratory: Positive for shortness of breath, Negative for cough, sputum production, wheezing. 11:18 Back: Positive for of the left trapezius, pain. Chronic low back pain. Exam: 11:18 Constitutional: This is a well developed, well nourished patient who is awake, alert, pm1 and in no acute distress. Head/Face: Normocephalic, atraumatic. 11:18 Back: No spinal tenderness. No costovertebral tenderness. Full range of motion. Skin: Warm, dry with normal turgor. Normal color with no rashes, no lesions, and no evidence of cellulitis. MS/ Extremity: Pulses equal, no cyanosis. Neurovascular intact. Full, normal range of motion. 11:18 Chest/axilla: Inspection: normal, Palpation: tenderness, of the anterior aspect of left upper chest and mid-sternal area. 11:18 Cardiovascular: Rate: tachycardic, actual rate is 102 bpm, Rhythm: regular, Pulses: no pulse deficits are appreciated, Heart sounds: normal, normal S1and S2, Edema: is not appreciated. 11:18 Respiratory: Exam negative for acute changes, respiratory distress, shortness of breath, Breath sounds: are clear throughout. 11:18 Abdomen/GI: Inspection: abdomen appears normal, Palpation: abdomen is soft and non-tender, in all quadrants. 11:18 Neuro: Exam negative for acute changes, Orientation: is normal, Mentation: is normal, Motor: is normal, moves all fours, Sensation: is normal, no obvious gross deficits. Vital Signs: 11:08 BP 146 / 66; Pulse 104; Resp 17; Temp 99.3; Pulse Ox 96% ; Pain 6/10; ll1 11:12 Weight 47.63 kg; Height 5 ft. 1 in. (154.94 cm); ll1 12:54 BP 133 / 57; Pulse 86; Resp 14; Pulse Ox 98% on R/A; Pain 8/10; hb 13:30 BP 140 / 63; Pulse 90; Resp 19; Pulse Ox 95% on R/A; ss 14:30 BP 135 / 59; Pulse 86; Resp 15; Pulse Ox 96% on R/A; hb 15:30 BP 126 / 65; Pulse 81; Resp 14; Pulse Ox 97% on R/A; hb 16:30 BP 123 / 68; Pulse 79; Resp 17; Pulse Ox 99% on R/A; hb 16:30 BP 123 / 68; Pulse 78; Resp 15; Pulse Ox 97% on R/A; hb 11:12 Body Mass Index 19.84 (47.63 kg, 154.94 cm) ll1 MDM: 11:08 Patient medically screened. pm1 13:58 Data reviewed: vital signs. pm1 14:00 Counseling: I had a detailed discussion with the patient and/or guardian regarding: the pm1 historical points, exam findings, and any diagnostic results supporting the discharge/admit diagnosis, lab results, radiology results, the need for further work-up and treatment in the hospital. 14:02 ED course: Patient reports known history elevated WBC since she had her splenectomy and pm1 her PCP, Dr. Wilson is aware of it. Patient without any obvious infective source or symptoms. No cough, fever, or urinary symptoms. Procalcitonin and lactate are negative. Antibiotics do not appear necessary at this time. 12/29 11:10 Order name: Basic Metabolic Panel; Complete Time: 12:23 pm1 12/29 11:10 Order name: CBC with Diff; Complete Time: 12:30 pm1 12/29 11:10 Order name: LFT's; Complete Time: 12:23 pm1 12/29 11:10 Order name: Magnesium; Complete Time: 12:23 pm1 12/29 11:10 Order name: NT PRO-BNP; Complete Time: 12:23 pm1 12/29 11:10 Order name: PT-INR; Complete Time: 12:03 pm12/29 11:10 Order name: Troponin (emerg Dept Use Only); Complete Time: 12:23 pm1 12/29 11:47 Order name: Manual Differential; Complete Time: 12:30 EDMS 12/29 12:04 Order name: Blood Culture Adult (2) pm1 12/29 12:04 Order name: Lactate pm12/29 12:04 Order name: Procalcitonin pm1 12/29 12:05 Order name: Blood Culture EDFL 12/29 12:05 Order name: Lactate; Complete Time: 13:54 EDMS 12/29 11:10 Order name: XRAY Chest (1 view); Complete Time: 12:23 pm1 12/29 12:05 Order name: Procalcitonin; Complete Time: 13:58 EDMS 12/29 12:08 Order name: Urine Microscopic Only pm1 12/29 12:08 Order name: Urine Microscopic Only; Complete Time: 14:57 EDMS 12/29 13:01 Order name: CT Chest For PE Angio; Complete Time: 13:58 pm1 12/29 13:16 Order name: SARS-COV-2 RT PCR; Complete Time: 13:19 EDMS 12/29 14:11 Order name: Urine Dipstick--Ancillary (enter results); Complete Time: 16:04 eb 12/29 15:11 Order name: Comprehensive Metabolic Panel [facility] 12/29 15:11 Order name: CBC with Automated Diff [facility] 12/29 15:11 Order name: CBC with Automated Diff [facility] 12/29 15:11 Order name: CBC with Automated Diff [facility] 12/29 15:11 Order name: Comprehensive Metabolic Panel [facility] 12/29 15:11 Order name: Troponin I [facility] 12/29 15:11 Order name: Troponin I [facility] 12/29 15:11 Order name: Troponin I [facility] 12/29 11:10 Order name: EKG; Complete Time: 11:10 pm12/29 11:10 Order name: Cardiac monitoring; Complete Time: 11:14 pm12/29 11:10 Order name: EKG - Nurse/Tech; Complete Time: 11:14 pm12/29 11:10 Order name: IV Saline Lock; Complete Time: 11:29 pm12/29 11:10 Order name: Labs collected and sent; Complete Time: 11:29 pm12/29 11:10 Order name: O2 Per Protocol; Complete Time: 11:14 pm12/29 11:10 Order name: O2 Sat Monitoring; Complete Time: 11:14 pm12/29 12:08 Order name: Urine Dipstick-Ancillary (obtain specimen); Complete Time: 14:10 pm1 Administered Medications: 11:29 Drug: morphine 4 mg Route: IVP; Site: left wrist; hb 14:03 Follow up: Response: No adverse reaction; Pain is decreased ss 11:29 Drug: Zofran (Ondansetron) 4 mg Route: IVP; Site: left wrist; hb 14:04 Follow up: Response: No adverse reaction ss 13:02 Drug: morphine 4 mg Route: IVP; Site: left forearm; hb 14:03 Follow up: Response: No adverse reaction; Pain is decreased ss Disposition: 17:44 Co-signature as Attending Physician, Mendoza Joe MD. rn Disposition: 12/29/20 14:01 Hospitalization ordered by Gaurang Vaughan for Observation. Preliminary diagnosis is Chest pain, unspecified. - Bed requested for Telemetry/MedSurg (observation). - Status is Observation. sv - Condition is Stable. - Problem is new. - Symptoms have improved. Signatures: Dispatcher [employer] EDFL Merced Kirk, RN RN Mendoza Greenwood MD MD rn Jarrod Zambrano, ELECTRONIC INSTRUMENT TRADES WORKER ELECTRONIC INSTRUMENT TRADES WORKER pm1 Billie Ford RN RN Dianne Henderson Lynsay, RN RN 1 Jane Prajapati RN ss Corrections: (The following items were deleted from the chart) 12:31 11:10 CORONAVIRUS+MR.LAB.BRZ ordered. EDFL EDFL 16:30 14:01 Hospitalization Ordered by Gaurang Vaughan MD for Observation. Preliminary eb diagnosis is Chest pain, unspecified. Bed requested for Telemetry/MedSurg (observation). Status is Observation. Condition is Stable. Problem is new. Symptoms have improved. pm1 17:37 16:30 12/29/2020 14:01 Hospitalization Ordered by Gaurang Vaughan MD for Observation. sv Preliminary diagnosis is Chest pain, unspecified. Bed requested for Telemetry/MedSurg (observation). Status is Observation. Condition is Stable. Problem is new. Symptoms have improved. eb
[2020-12-29 14:40] LABS: Urine Bacteria <20 /HPF (<20); Urine RBC <5 /HPF (NONE SEEN)
[2020-12-29] MEDS ORDERED: ONDANSETRON 4 MG/2 ML VIAL IV PRN (15:08)
[2020-12-29] MEDS ORDERED: LORAZEPAM 0.5 MG TABLET PO PRN (15:10)
[2020-12-29] MEDS ORDERED: ALBUTEROL 2.5 MG/3 ML NEB SOL NEB PRN (15:10)
[2020-12-29] MEDS ORDERED: ACETAMINOPHEN 325 MG TABLET PO PRN (15:10)
[2020-12-29] MEDS ORDERED: HYDRALAZINE HCL 20 MG/ML VIAL IV PRN (15:10)
[2020-12-29 15:35] LABS: Urine Blood TRACE (Negative); Urine Glucose NEGATIVE (Negative); Urine Protein NEGATIVE (NEG); Urine pH 7.5 (5.0-7.0)
--- NOTE | 2020-12-29 16:14 | P.HP ---
Patient History Date of Service: 12/29/20 Reason for admission: chest pain History of Present Illness: 70 yr old female with HTN , chronic tobbaco use , hx of stent to abdominal vessels - unsure of which vessel , hx of chronic elevated WBC in the past , s/p splenectomy for lesions but state she hd workup but unable to tell diagnosis , previously follows with Dr Conn , still actively smokes , recently daognosed Lupus , on Placquenil , hx of GERD s/p prior EGD but unsure of findings admitted for left sided chest apin , describe the pain as substrenal , more in epigastric region , radiating to left chest and , back and shoulder and up to jaw and neck and back of head . She states pain was pressure like last pm but more aching now . She admitt o daily gastric pain but not similar to his symptoms now No prior hx of CAD , she state she failed a tress test years ago and has an angiogram 2 years ago but unsure of findings . On admisison she was noted with negative initial cardiac enzymes and CXR also with no abnopmality but elevated WBC in the 20k. Allergies Penicillins Allergy (Verified 01/06/19 11:36) Anaphylaxis Sulfa (Sulfonamide Antibiotics) Allergy (Verified 01/06/19 11:36) Rash Home Medications: Alprazolam [Xanax Xr] 0.5 mg PO BEDTIME PRN 01/26/19 Amlodipine Besylate [Norvasc] 5 mg PO DAILY 01/26/19 Aspirin 81 mg PO DAILY 01/26/19 Cetirizine HCl [Zyrtec] 5 mg PO DAILY PRN 01/26/19 Clopidogrel Bisulfate [Plavix] 75 mg PO DAILY 01/26/19 Esomeprazole Mag Trihydrate [Nexium] 40 mg PO BID 01/26/19 Hydrocodone Bit/Acetaminophen [Hydrocodon-Acetaminophn 10-325] 1 each PO QID 01/26/19 Ibuprofen [Advil] 200 mg PO TID PRN 01/26/19 Ipratropium/Albuterol Sulfate [Combivent Respimat Inhal Henderson] 2 inh IH BID 01/26/19 Mometasone Furoate [Nasonex] 17 gm NS DAILY 01/26/19 cilostazoL [Cilostazol] 200 mg PO DAILY 04/25/19 - Past Medical/Surgical History Diabetic: No -: lupus -: ASCVD -: left knee fracture -: PAD -: Arthritis -: Hay fever -: Irritable bowel -: GERD -: Cardiac stent -: Appendectomy -: Tonsillectomy -: Hysterectomy -: Speenectomy -: Back fusions -: Shoulder surgery -: Left foot surgery - Social History Alcohol use: Yes Review of Systems 10-point ROS is otherwise unremarkable General: Unremarkable Eyes: Unremarkable ENT: Unremarkable Respiratory: Unremarkable Gastrointestinal: Unremarkable Musculoskeletal: Shoulder Pain, Back Pain Physical Examination - Physical Exam General: Alert, In no apparent distress, Oriented x3 HEENT: Atraumatic, Normocephalic, PERRLA Neck: Supple, 2+ carotid pulse no bruit, JVD not distended Respiratory: Clear to auscultation bilaterally, Normal air movement Cardiovascular: No edema, Regular rate/rhythm, Normal S1 S2 Gastrointestinal: Normal bowel sounds, Soft and benign, Non-distended Musculoskeletal: No clubbing, No swelling Neurological: Normal gait, Normal speech, Normal strength at 5/5 x4 extr - Studies Laboratory Data (last 24 hrs) 12/29/20 11:24: PT 11.4, INR 0.99 12/29/20 11:24: WBC 21.00 H*, Hgb 14.1, Hct 42.8, Plt Count 415 H 12/29/20 11:24: Sodium 138, Potassium 4.0, BUN 14, Creatinine 0.58, Glucose 106, Magnesium 2.3, Total Bilirubin 0.7, AST 15, ALT 13, Alkaline Phosphatase 109 Assessment and Plan - Problems (Diagnosis) (1) Chest pain Current Visit: Yes Status: Acute (2) History of back surgery Current Visit: No Status: Acute (3) Lupus Current Visit: No Status: Acute (4) Smoker Current Visit: No Status: Acute - Advance Directives Does patient have a Living Will: Yes Does patient have a Durable POA for Healthcare: Yes Physician Review Additional Text: PLAN - will admit to tele -serial sets of cardiac enzymes -will consult cardiology since she is high risk , may need chemical stress test - smoking cessation advised, start nicotine patch - obtain home meds, and resume plaquenil -will restart plavix , add Aspirin for now -prn pain regime - will start Pepcid in additon to PPI for presuemd GI symptoms , may need repeat EGD if ACS ruled out - start lovenox for DVT prop -
[2020-12-29 16:21] LABS: Absolute Lymphocytes (CBC) 2.2 K/uL (0.7-4.9); Basophils % 1.4 % (0-1.3); Hematocrit 38.8 % (36.0-45.0); Lymphocytes % 12.1 % (15.3-44.8); MPV 9.5 fL (7.6-11.3); RBC Red Blood Cell Count 4.28 M/uL (3.86-4.86)
[2020-12-29 18:06] VITALS: BMI 21.0
[2020-12-29 18:38] VITALS: O2SAT 95
[2020-12-29] MEDS: MORPHINE 2 MG/ML SYR IV PRN (19:47)
[2020-12-29] MEDS: PANTOPRAZOLE 40MG TABLET PO SCH (19:47)
[2020-12-29] MEDS: FAMOTIDINE 20 MG TAB PO SCH (19:47)
[2020-12-30] MEDS ORDERED: ALPRAZOLAM 0.5 MG TABLET PO PRN (00:52)
[2020-12-30] MEDS: MORPHINE 2 MG/ML SYR IV PRN (04:36)
[2020-12-30 04:46] LABS: Absolute Lymphocytes (CBC) 2.7 K/uL (0.7-4.9); Basophils % 1.5 % (0-1.3); Hematocrit 36.7 % (36.0-45.0); Lymphocytes % 21.8 % (15.3-44.8); MPV 9.3 fL (7.6-11.3); RBC Red Blood Cell Count 4.07 M/uL (3.86-4.86)
[2020-12-30 05:15] LABS: ALT/SGPT 11 U/L (12-78); AST/SGOT 11 U/L (15-37); Albumin 3.1 g/dL (3.4-5.0); Alkaline Phosphatase 83 U/L (45-117); BUN Blood Urea Nitrogen 15 mg/dL (7-18); Bicarbonate 28 mmol/L (21-32); Bilirubin Total 0.5 mg/dL (0.2-1.0); Glucose Level 91 mg/dL (74-106); Potassium 4.2 mmol/L (3.5-5.1); Protein, Total 6.7 g/dL (6.4-8.2); Sodium Level 140 mmol/L (136-145); Troponin I < 0.02 ng/mL (0.0-0.045)
--- NOTE | 2020-12-30 07:45 | P.DS ---
Admission Date: 12/29/20 Discharge Date: 12/30/20 Primary Care Provider: Dr. Wilson; Pain management Disposition: ROUTINE DISCHARGE Discharge Condition: GOOD Reason for Admission: chest pain Consultations: Cardiology-Dr. Conn Procedures: COVID: Negative CT Scan: FINDINGS: A pulmonary embolus is not seen. A thoracic aortic aneurysm is not noted. A pleural effusion is not seen. A pericardial effusion is not seen. A lung consolidation is not present. 10 millimeter calcified nodule left lobe of the thyroid gland IMPRESSION: Negative for a pulmonary embolism. 10 millimeter calcified nodule left lobe of thyroid gland probably benign. Follow-up ultrasound 1 year recommended CXR: COMPARISON: 2019 FINDINGS: The lungs appear clear of acute infiltrate. The heart is normal size IMPRESSION: No acute abnormalities displayed Cardiac stress test: Medical Problem List: Chest pain, atypical GERD Chronic back pain with history of back surgery Lupus Tobacco abuse Peripheral vascular disease with prior stent on chronic anticoagulation therapy 10 millimeter calcified nodule left lobe of thyroid gland probably benign Brief History of Present Illness: 70 yr old female presented to the emergency room with chest pain. Patient with chronic pain, peripheral vascular disease on chronic anticoagulation therapy, and tobacco abuse. Patient reported substernal epigastric pain. This radiated to the left chest wall and the back. Patient admits increased anxiety. Patient was seen in the ER. CT scan unremarkable. Patient admitted for further evaluation and treatment. Hospital Course: Patient presented with chest pain. Chest pain was mainly to the epigastric area radiating to the left chest wall. Patient was admitted for further evaluation and treatment. CT chest unremarkable. Chest x-ray unremarkable. Cardiac enzymes x3 have been negative. Cardiology evaluated patient. Cardiology recommended cardiac stress test to further evaluate. Patient preferred to have cardiac stress test to be done as an outpatient. Patient without chest pain at this time. Patient will be discharged home. Recommend for cardiac stress test to be done as an outpatient within the next week. Recommend follow-up with cardiology to further address and monitor. Patient likely with underlying GERD. Recommend to start Pepcid 20 mg 1 pill twice daily. Recommend GI evaluation as an outpatient to further addressed especially if cardiac work-up unremarkable. Patient with tobacco abuse. Tobacco cessation addressed in detail. Patient with chronic pain. Patient sees pain management. Recommend follow-up with pain management to further address. At discharge she will continue with her current medications. Patient with history of lupus. At discharge she will continue with her current medications. Patient with history of peripheral vascular disease with prior stent. Patient to continue with her current medications. CT scan also revealed a 10 mm calcified nodule to the left lobe of the thyroid. This is likely benign. Radiology recommended repeat ultrasound in 1 year to monitor stability. Vital Signs/Physical Exam: Temp Pulse Resp BP Pulse Ox 97.7 F 63 18 121/57 L 94 12/30/20 04:00 12/30/20 04:00 12/30/20 05:06 12/30/20 04:00 12/30/20 05:06 General: Alert, In no apparent distress, Oriented x3, Cooperative HEENT: Atraumatic Neck: Supple Respiratory: Clear to auscultation bilaterally, Normal air movement Cardiovascular: Normal pulses, Regular rate/rhythm Gastrointestinal: Normal bowel sounds, No tenderness, No masses, No rebound, No guarding Neurological: Normal speech, Normal strength at 5/5 x4 extr, Normal tone, Normal affect Laboratory Data at Discharge: WBC 12.30 K/uL (4.3-10.9) H D 12/30/20 04:26 Hgb 12.3 g/dL (12.0-15.0) 12/30/20 04:26 Hct 36.7 % (36.0-45.0) 12/30/20 04:26 Plt Count 371 K/uL (152-406) 12/30/20 04:26 PT 11.4 SECONDS (9.5-12.5) 12/29/20 11:24 INR 0.99 12/29/20 11:24 Sodium 140 mmol/L (136-145) 12/30/20 04:26 Potassium 4.2 mmol/L (3.5-5.1) 12/30/20 04:26 BUN 15 mg/dL (7-18) 12/30/20 04:26 Creatinine 0.53 mg/dL (0.55-1.3) L 12/30/20 04:26 Glucose 91 mg/dL (74-106) 12/30/20 04:26 Magnesium 2.3 mg/dL (1.8-2.4) 12/29/20 11:24 Total Bilirubin 0.5 mg/dL (0.2-1.0) 12/30/20 04:26 AST 11 U/L (15-37) L 12/30/20 04:26 ALT 11 U/L (12-78) L 12/30/20 04:26 Alkaline Phosphatase 83 U/L (45-117) 12/30/20 04:26 Troponin I < 0.02 ng/mL (0.0-0.045) 12/30/20 04:26 Home Medications: ALPRAZolam [Xanax*] 0.5 mg PO DAILY 12/29/20 Diclofenac Sodium [Diclo Gel] 1 jonathan TOP QID PRN 12/29/20 Hydrocodone/Acetaminophen [Hydrocodone-Acetamin 10-325 mg] 1 tab PO Q6H PRN 12/29/20 Oxycodone HCl/Acetaminophen [Oxycodone-Acetaminophen 10-325] 1 tab PO BEDTIME 12/29/20 Promethazine HCl [Promethegan] 25 mg PO Q12H PRN 12/29/20 Rivaroxaban [Xarelto*] 15 mg PO DAILY 12/29/20 Tizanidine HCl [Zanaflex] 2 mg PO BEDTIME 12/29/20 cilostazoL [Cilostazol] 100 mg PO BID 12/29/20 Famotidine [Pepcid] 20 mg PO BID #60 tab 12/30/20 New Medications: Famotidine [Pepcid] 20 mg PO BID #60 tab Physician Discharge Instructions: Patient presented with chest pain. Chest pain was mainly to the epigastric area radiating to the left chest wall. Patient was admitted for further evaluation and treatment. CT chest unremarkable. Chest x-ray unremarkable. Cardiac enzymes x3 have been negative. Cardiology evaluated patient. Cardiology recommended cardiac stress test to further evaluate. Patient preferred to have cardiac stress test to be done as an outpatient. Patient without chest pain at this time. Patient will be discharged home. Recommend for cardiac stress test to be done as an outpatient within the next week. Recommend follow-up with cardiology to further address and monitor. Patient likely with underlying GERD. Recommend to start Pepcid 20 mg 1 pill twice daily. Recommend GI evaluation as an outpatient to further addressed especially if cardiac work-up unremarkable. Patient with tobacco abuse. Tobacco cessation addressed in detail. Patient with chronic pain. Patient sees pain management. Recommend follow-up with pain management to further address. At discharge she will continue with her current medications. Patient with history of lupus. At discharge she will continue with her current medications. Patient with history of peripheral vascular disease with prior stent. Patient to continue with her current medications. CT scan also revealed a 10 mm calcified nodule to the left lobe of the thyroid. This is likely benign. Radiology recommended repeat ultrasound in 1 year to monitor stability. Diet: AHA Activity: Ad nas Followup: NONE,NONE [Primary Care Provider] - Time spent managing pt's care (in minutes): 55
[2020-12-30] MEDS ORDERED: INFLUENZA VACCINE (for 3y+) 0.5 ML DOSE IMVAC ONE (08:00)
[2020-12-30] MEDS: FAMOTIDINE 20 MG TAB PO SCH (08:11)
[2020-12-30] MEDS: PANTOPRAZOLE 40MG TABLET PO SCH (08:12)
[2020-12-30 08:38] VITALS: BP 138/56; TEMP 97
[2020-12-30] MEDS ORDERED: FLUTICASONE 50MCG NASAL SPRAY NAS SCH (09:00)
[2020-12-30] MEDS ORDERED: ASPIRIN EC 81 MG TAB PO SCH ×2 (09:00)
[2020-12-30] MEDS ORDERED: ALBUTEROL 2.5 MG/3 ML NEB SOL NEB SCH (09:00)
[2020-12-30] MEDS ORDERED: ENOXAPARIN 40 MG/0.4 ML SQ SCH (09:00)
[2020-12-30] MEDS ORDERED: NICOTINE 21 MG/PAT TD SCH (09:00)
[2020-12-30] MEDS ORDERED: CLOPIDOGREL 75 MG TABLET PO SCH (09:00)
[2020-12-30] MEDS ORDERED: IPRATROPIUM BROM 0.5MG/2.5ML IH SCH (09:00)
--- NOTE | 2020-12-30 12:17 | CON ---
Date of Consultation: 12/30/2020 Reason For Consultation: Chest pain. History Of Present Illness: Ms. Lyon is a 70-year-old woman. She is a do not resuscitate. Has a history of hypertension, lupus, vertigo, gastroesophageal reflux disease, chronic back pain. Came in with multiple symptoms including chest pain, mostly in the midepigastric region, radiating to the ch est and shoulder with palpitation. The patient also complained of neck pain. Denied any nausea, vom iting, diaphoresis, PND, orthopnea, pedal edema, or syncope. Her symptoms were nonexertional and goi ng on for few hours. Her workup including negative troponin, negative chest x-ray, negative EKG. Sh e does have a history of peripheral arterial disease as well, status post PCI on one of her legs. Th e only significant abnormality on the labs is elevated BNP of 327 and white count of 18,000. Lexisca n is pending. Past Medical History: As stated above. Allergies: TO PENICILLIN AND SULFA. Review of Systems: Negative. Social History: Negative. Family History: Negative. Medications: At home include aspirin, Plavix, hydralazine, Protonix, inhalers. She is also on Loven ox right now. Physical Examination: Vital Signs: Stable, afebrile. HEENT: Negative. Neck: Supple with no bruit. Chest: Clear. Cardiac: Revealed a regular rhythm and rate. No murmurs, gallops, or rubs. Abdomen: Benign. Extremities: Revealed no clubbing, cyanosis, or edema. Diagnostic Data: As stated earlier. Impression And Plan: Atypical chest pain in a patient with history of hypertension and peripheral va scular disease. I think a Lexiscan is indicated. The patient, however, is hesitant to have a Lexisc an today done as an outpatient and I will make arrangements for that. I think her symptoms are more likely related to a gastric origin. The pain is definitely in the mid epigastric, lower abdomen area that radiated to the shoulder and chest and the neck. Her palpitations are nonspecific, could be PV Cs and PACs. She does have an elevated white count that needs to be addressed. Her BNP elevation is not very significant. I am comfortable with her getting her medications at home and follow up as an outpatient and I will arrange echocardiogram and Lexiscan in the near future. NB/MODL Voice ID: [id number] Report ID: [id number]
== END 2020-12-30 11:11 | disposition home or self-care (01) ==
LOC: ER 11:04 → ERHOLD 15:09 → 2ND 17:02
PROVIDERS: ADMIT Internal Medicine; ATTEND Family Medicine
DX: R07.89 Other chest pain (principal); K21.9 Gastro-esophageal reflux disease without esophagitis; M54.9 Dorsalgia, unspecified; G89.29 Other chronic pain; M32.9 Systemic lupus erythematosus, unspecified; I73.9 Peripheral vascular disease, unspecified; I25.10 Atherosclerotic heart disease of native coronary artery without angina pectoris; D72.829 Elevated white blood cell count, unspecified; E04.1 Nontoxic single thyroid nodule; I10 Essential (primary) hypertension; R42 Dizziness and giddiness; M19.90 Unspecified osteoarthritis, unspecified site; K58.9 Irritable bowel syndrome, unspecified; J30.1 Allergic rhinitis due to pollen; F41.9 Anxiety disorder, unspecified; F17.210 Nicotine dependence, cigarettes, uncomplicated; Z71.6 Tobacco abuse counseling; Z79.01 Long term (current) use of anticoagulants; Z79.02 Long term (current) use of antithrombotics/antiplatelets; Z79.899 Other long term (current) drug therapy; Z88.0 Allergy status to penicillin; Z88.1 Allergy status to other antibiotic agents; Z88.2 Allergy status to sulfonamides; Z95.5 Presence of coronary angioplasty implant and graft; Z98.890 Other specified postprocedural states; Z90.81 Acquired absence of spleen; Z90.710 Acquired absence of both cervix and uterus; Z66 Do not resuscitate; Z20.822 Contact with and (suspected) exposure to COVID-19
CPT/HCPCS: 93005; 87040 ×2; 85025 ×3; 80048; 36415; 83735; 85610; 80076; 83605; 84484 ×4; 80053; 84145; 83880; 71275; 71045; 94640; 99285; U0003; Q9967; J2270 ×2; J2405; 81003; 81015; G0378